=== PATIENT | male | born 1950 | race Caucasian/White ===

== ENCOUNTER 2019-01-14 20:47 | Observation (INO) | payer MEDICARE, OTHER ==
[2019-01-14] MEDS ORDERED: TRANDATE 20 MG/5 ML SYRINGE IV ONE ×2 (21:01→21:04)
[2019-01-14] MEDS ORDERED: Sodium Chloride 0.9% 1000 ML 1,000 ML ONE (21:05)
[2019-01-14 21:08] LABS: BASOPHIL % 0.8 % (0.0-0.4); Basophil (Absolute #) 0.06 (0-0.4); Eosinophil % 3.4 % (0.00-5.0); Eosinophil (Absolute #) 0.27 (0-0.5); Granulocyte Absolute (ANC) 4.62 (1.4-6.9); Granulocytes % 58.9 % (36.0-66.0); Hematocrit 45.3 % (42-50); Lymphocyte (Absolute #) 2.07 (1.0-4.6); Lymphocytes % 26.4 % (24.0-44.0); Mean Cell Volume 88.8 fl (78-100); Mean Corpuscular Hemoglobin 29.4 pg (26-32); Mean Corpuscular Hgb Concent. 33.1 g/dl (32-36); Monocyte (Absolute #) 0.82 (0.0-1.3); Monocytes % 10.5 % (0.0-12.0); Platelet Count 230 K/mm3 (150-450); Red Cell Distribution Width 14.8 % (11.5-14.0); White Blood Count 7.8 K/mm3 (4.0-10.5)
[2019-01-14] MEDS ORDERED: Sodium Chloride 0.9% 1000 ML 1,000 ML IV SCH ×2 (21:15→22:28)
[2019-01-14 21:19] LABS: ALBUMIN 4.4 g/dL (3.5-5.0); ALKALINE PHOSPHATASE 63 U/L (38-126); ANION GAP 14.8 MEQ/L (5-15); BLOOD UREA NITROGEN 23 mg/dL (9-20); CHLORIDE 104 mmol/L (98-107); Calcium 9.3 mg/dL (8.4-10.2); Carbon Dioxide 25 mmol/L (22-30); Creatinine 1 1.04 mg/dL (0.66-1.25); Glucose 126 mg/dL (74-106); Potassium 3.9 mmol/L (3.5-5.1); SGOT/AST 26 U/L (17-59); SGPT/ALT 31 U/L (0-50); SODIUM 141 mmol/L (137-145); Total Protein 7.4 g/dL (6.3-8.2)
--- NOTE | 2019-01-14 21:34 | ERPHSYRPT ---
- History of Present Illness Time Seen by Provider: 01/14/19 21:29 Source: patient, family Exam Limitations: no limitations Patient Subjective Stated Complaint: pt is alert and oriented. pt is ambulatory with a steady gait. pt comes in with c/o double vision and "bp problems." pt states he went to the fire house to have his bp checked and they told him it was "off" pt states that he's had double vision for most of the day today but can see normal with one eye but double with both eyes open and a very slight headache. pt denies past bp issues. pt current pt is 151/102. pt skin is pwd. pt PERRLA. pt denies chest pain, dizziness, pt is SR on the monitor. pt denies numbness, tingling, no facial droop noted, no slured speech. Triage Nursing Assessment: see above Physician History: pt comes in with c/o double vision and "bp problems." pt states he went to the fire house to have his bp checked and they told him it was "off" pt states that he's had double vision for most of the day today but can see normal with one eye but double with both eyes open and a very slight headache. pt denies past bp issues. Timing/Duration: today Character of Deficits: altered sensation, vision problems Deficits: no difficulties Baseline/Normal Cognition: alert oriented x 3 Current Cognition: alert oriented x 3 Associated Symptoms: vision changes, headache Allergies/Adverse Reactions: No Known Drug Allergies Allergy (Unverified 01/14/19 21:09) Home Medications: Amitriptyline HCl 300 mg PO BID 01/14/19 [History] Gabapentin 1,600 mg PO TID 01/14/19 [History] Immunizations Up to Date: Yes - Review of Systems Constitutional: No Fever, No Chills Eyes: No Symptoms, Double Vision Ears, Nose, & Throat: No Symptoms Respiratory: No Cough, No Dyspnea Cardiac: No Chest Pain, No Edema, No Syncope Abdominal/Gastrointestinal: No Abdominal Pain, No Nausea, No Vomiting, No Diarrhea Genitourinary Symptoms: No Dysuria Musculoskeletal: No Back Pain, No Neck Pain Skin: No Rash Neurological: Headache, No Dizziness, No Focal Weakness, No Sensory Changes Psychological: No Symptoms Endocrine: No Symptoms All Other Systems: Reviewed and Negative - Past Medical History Pertinent Past Medical History: No Neurological History: No Pertinent History ENT History: No Pertinent History Cardiac History: No Pertinent History Respiratory History: No Pertinent History Endocrine Medical History: No Pertinent History Musculoskeletal History: No Pertinent History GI Medical History: No Pertinent History History: No Pertinent History Psycho-Social History: No Pertinent History Male Reproductive Disorders: No Pertinent History - Past Surgical History Past Surgical History: Yes Neuro Surgical History: No Pertinent History Cardiac: No Pertinent History Respiratory: No Pertinent History Gastrointestinal: No Pertinent History Genitourinary: No Pertinent History Musculoskeletal: Orthopedic Surgery Male Surgical History: No Pertinent History - Social History Smoking Status: Never smoker Drug Use: none - Nursing Vital Signs Nursing Vital Signs: Initial Vital Signs Pulse Rate 98 H 01/14/19 20:53 Respiratory Rate 18 01/14/19 20:53 Blood Pressure 151/102 01/14/19 20:53 O2 Sat by Pulse Oximetry 98 01/14/19 20:53 Pain Scale Pain Intensity 1 - Scenic Coma Scale Best Eye Response (Harvinder): (4) open spontaneously Best Verbal Response (Harvinder): (5) oriented Best Motor Response (Harvinder): (6) obeys commands Scenic Total: 15 - Physical Exam General Appearance: no apparent distress, alert Eye Exam: bilateral eye: PERRL, EOMI, A-V nicking Ears, Nose, Throat Exam: normal ENT inspection, moist mucous membranes Neck Exam: normal inspection, non-tender, supple Respiratory: normal breath sounds, lungs clear, airway intact, No respiratory distress Cardiovascular: regular rate/rhythm, No edema Gastrointestinal: soft, No tenderness, No distention Back Exam: normal inspection Extremity Exam: normal inspection, No pedal edema Mental Status: 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, 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 Exam: PERRL, tongue midline Coordination/Gait: normal finger to nose, normal gait Skin Exam: normal color, warm, dry, No rash SpO2: 98 - Course EKG Interpreted by Me: Sinus Rhythm - Radiology Exams Chest X-ray Interpretation: Reviewed by me, Negative - CT Exams Head CT Interpretation: Tele-radiologist Report, No/Intracranial Hemorrhag Ordered Tests: Active Orders 24 hr Category Date Time Status EKG-ER Only STAT Care 01/14/19 21:01 Active NPO (ED) STAT Care 01/14/19 21:00 Active CHEST 1 VIEW (PORTABLE) Stat Exams 01/14/19 21:01 Taken HEAD WITHOUT CONTRAST [CT] Stat Exams 01/14/19 21:00 Taken CBC W DIFF Stat Lab 01/14/19 21:05 Completed CMP Stat Lab 01/14/19 21:05 Completed Erythrocyte Sedimentation Rate Stat Lab 01/14/19 21:00 Completed TROPONIN Q3H Lab 01/14/19 21:05 Completed TROPONIN Q3H Lab 01/15/19 00:00 Ordered TROPONIN Q3H Lab 01/15/19 03:00 Ordered TROPONIN Q3H Lab 01/15/19 06:00 Ordered TROPONIN Q3H Lab 01/15/19 09:00 Ordered Medication Summary Generic Name Dose Route Start Last Admin Trade Name Freq PRN Reason Stop Dose Admin Sodium Chloride 1,000 mls @ 100 mls/hr 01/14/19 21:15 01/14/19 21:22 Sodium Chloride 0.9% 1000 Ml IV 02/13/19 21:14 100 mls/hr .Q10H [facility] Administration Discontinued Medications Generic Name Dose Route Start Last Admin Trade Name Freq PRN Reason Stop Dose Admin Labetalol HCl 10 mg 01/14/19 21:01 01/14/19 21:22 Trandate 20 Mg/5 Ml Syringe IV 01/14/19 21:02 10 mg STAT ONE Administration Labetalol HCl Confirm 01/14/19 21:04 Trandate 20 Mg/5 Ml Syringe Administered 01/14/19 21:05 Dose 20 mg IV .WALTOP-Dreamise ONE Lab/Rad Data: Laboratory Result Diagrams 01/14/19 21:05 01/14/19 21:05 Laboratory Results 01/14/19 01/14/19 01/14/19 Range/Units 21:05 21:05 21:05 WBC 7.8 (4.0-10.5) K/mm3 RBC 5.10 (4.1-5.6) M/mm3 Hgb 15.0 (12.5-18.0) gm/dl Hct 45.3 (42-50) % MCV 88.8 (78-100) fl MCH 29.4 (26-32) pg MCHC 33.1 (32-36) g/dl RDW 14.8 H (11.5-14.0) % Plt Count 230 (150-450) K/mm3 MPV 10.0 H (6-9.5) fl Gran % 58.9 (36.0-66.0) % Eos # (Auto) 0.27 (0-0.5) Absolute Lymphs (auto) 2.07 (1.0-4.6) Absolute Monos (auto) 0.82 (0.0-1.3) Lymphocytes % 26.4 (24.0-44.0) % Monocytes % 10.5 (0.0-12.0) % Eosinophils % 3.4 (0.00-5.0) % Basophils % 0.8 (0.0-0.4) % Absolute Granulocytes 4.62 (1.4-6.9) Basophils # 0.06 (0-0.4) ESR (0-15) mm/hr Sodium 141 (137-145) mmol/L Potassium 3.9 (3.5-5.1) mmol/L Chloride 104 (98-107) mmol/L Carbon Dioxide 25 (22-30) mmol/L Anion Gap 14.8 (5-15) MEQ/L BUN 23 H (9-20) mg/dL Creatinine 1.04 (0.66-1.25) mg/dL Estimated GFR > 60.0 ML/MIN Glucose 126 H (74-106) mg/dL Calcium 9.3 (8.4-10.2) mg/dL Total Bilirubin 0.40 (0.2-1.3) mg/dL AST 26 (17-59) U/L ALT 31 (0-50) U/L Alkaline Phosphatase 63 (38-126) U/L Troponin I < 0.012 (0.000-0.034) ng/mL Serum Total Protein 7.4 (6.3-8.2) g/dL Albumin 4.4 (3.5-5.0) g/dL 01/14/19 Range/Units 21:00 WBC (4.0-10.5) K/mm3 RBC (4.1-5.6) M/mm3 Hgb (12.5-18.0) gm/dl Hct (42-50) % MCV (78-100) fl MCH (26-32) pg MCHC (32-36) g/dl RDW (11.5-14.0) % Plt Count (150-450) K/mm3 MPV (6-9.5) fl Gran % (36.0-66.0) % Eos # (Auto) (0-0.5) Absolute Lymphs (auto) (1.0-4.6) Absolute Monos (auto) (0.0-1.3) Lymphocytes % (24.0-44.0) % Monocytes % (0.0-12.0) % Eosinophils % (0.00-5.0) % Basophils % (0.0-0.4) % Absolute Granulocytes (1.4-6.9) Basophils # (0-0.4) ESR 3 (0-15) mm/hr Sodium (137-145) mmol/L Potassium (3.5-5.1) mmol/L Chloride (98-107) mmol/L Carbon Dioxide (22-30) mmol/L Anion Gap (5-15) MEQ/L BUN (9-20) mg/dL Creatinine (0.66-1.25) mg/dL Estimated GFR ML/MIN Glucose (74-106) mg/dL Calcium (8.4-10.2) mg/dL Total Bilirubin (0.2-1.3) mg/dL AST (17-59) U/L ALT (0-50) U/L Alkaline Phosphatase (38-126) U/L Troponin I (0.000-0.034) ng/mL Serum Total Protein (6.3-8.2) g/dL Albumin (3.5-5.0) g/dL - Progress Progress: improved Progress Note: 01/14/19 22:04 blood pressure improved, double vision improved but not completely gone Discussed with : Yuki Counseled pt/family regarding: lab results, diagnosis, need for follow-up, rad results - Departure Time of Disposition: 22:07 Departure Disposition: Observation Clinical Impression: Diplopia, Elevated blood pressure reading, Acute posterior circulation transient ischemic attack Condition: Fair Critical Care Time: Yes Critical Care Time(excluding separately billable procedures): 30-74 minutes Referrals: ALEXANDER JAVED MD [Primary Care Provider] -
[2019-01-15] MEDS: Neurontin 400 MG PO SCH ×2 (00:47→09:58)
--- NOTE | 2019-01-15 07:28 | PCM.HP ---
History of Present Illness - Chief Complaint Chief Complaint: c/o double vision and left sided temporal headache for 1 day History of Present Illness: is a 68 year old male came to Er with C/O left sided temporal area headache and double vision. He denies any other problem. His blood pressure is also running high recently - Review of Systems Constitutional: No Fever, No Chills Eyes: Double Vision Ears, Nose, & Throat: No Symptoms Respiratory: No Cough, No Short Of Breath Cardiac: No Chest Pain, No Edema, No Syncope Abdominal/Gastrointestinal: No Abdominal Pain, No Nausea, No Vomiting, No Diarrhea Genitourinary Symptoms: No Dysuria Musculoskeletal: No Back Pain, No Neck Pain Skin: No Rash Neurological: Headache, No Dizziness, No Focal Weakness, No Sensory Changes Psychological: No Symptoms Endocrine: No Symptoms Hematologic/Lymphatic: No Symptoms Immunological/Allergic: No Symptoms Medications & Allergies Home Medications: Home Medication List Amitriptyline HCl 150 mg PO BID 01/14/19 [History Confirmed 01/15/19] Gabapentin 1,600 mg PO TID 01/14/19 [History Confirmed 01/14/19] Allergies/Adverse Reactions: Allergies Allergy/AdvReac Type Severity Reaction Status Date / Time No Known Drug Allergies Allergy Unverified 01/14/19 21:09 - Past Medical History Past Medical History: Yes Neurological History: Peripheral Neuropathy ENT History: No Pertinent History Cardiac History: No Pertinent History Respiratory History: No Pertinent History Endocrine Medical History: No Pertinent History Musculoskelatal History: No Pertinent History GI Medical History: No Pertinent History History: No Pertinent History Pyscho-Social History: No Pertinent History Male Reproductive Disorders: No Pertinent History - Past Surgical History Past Surgical History: Yes Neuro Surgical History: No Pertinent History Cardiac History: No Pertinent History Respiratory Surgery: No Pertinent History GI Surgical History: No Pertinent History Genitourinary Surgical Hx: No Pertinent History Musculskeletal Surgical Hx: Orthopedic Surgery Male Surgical History: No Pertinent History Other Surgical History: back surgery - Social History Smoking Status: Never smoker Exposure to second hand smoke: No Alcohol: None Drug Use: none - Physical Exam Vital Signs: Vital Signs - 24 hr Temp Pulse Resp BP Pulse Ox 01/15/19 03:47 97.9 F 78 18 116/72 91 L 01/14/19 23:24 97.9 F 74 18 157/87 95 03/23/19 22:30 120/82 01/14/19 22:15 130/89 01/14/19 22:07 98 01/14/19 22:00 133/82 01/14/19 21:48 133/88 01/14/19 21:30 133/87 01/14/19 21:27 138/90 01/14/19 21:25 154/99 01/14/19 21:23 165/104 01/14/19 21:05 163/102 01/14/19 20:53 98 H 18 151/102 98 General Appearance: no apparent distress, alert Neurologic Exam: alert, oriented x 3, cooperative, normal mood/affect, nml cerebellar function, nml station & gait, sensation nml, No motor deficits Eye Exam: PERRL/EOMI, eyes nml inspection, other (double vision when both eyes open, clears off when shut one eye off) Ears, Nose, Throat Exam: normal ENT inspection, TMs normal, pharynx normal, moist mucous membranes Neck Exam: normal inspection, non-tender, supple, full range of motion Respiratory Exam: normal breath sounds, lungs clear, No respiratory distress Cardiovascular Exam: regular rate/rhythm, normal heart sounds, normal peripheral pulses Gastrointestinal/Abdomen Exam: soft, normal bowel sounds, No tenderness, No mass Back Exam: normal inspection, normal range of motion, No CVA tenderness, No vertebral tenderness Extremity Exam: normal inspection, normal range of motion, pelvis stable Skin Exam: normal color, warm, dry, No rash Lymphatic Exam: No adenopathy Results - Labs Lab/Micro Results: Accuchecks Accucheck Value: 119 Lab Results-Last 24 Hours 01/14/19 01/14/19 01/14/19 Range/Units 21:00 21:05 21:05 WBC 7.8 (4.0-10.5) K/mm3 RBC 5.10 (4.1-5.6) M/mm3 Hgb 15.0 (12.5-18.0) gm/dl Hct 45.3 (42-50) % MCV 88.8 (78-100) fl MCH 29.4 (26-32) pg MCHC 33.1 (32-36) g/dl RDW 14.8 H (11.5-14.0) % Plt Count 230 (150-450) K/mm3 MPV 10.0 H (6-9.5) fl Gran % 58.9 (36.0-66.0) % Eos # (Auto) 0.27 (0-0.5) Absolute Lymphs (auto) 2.07 (1.0-4.6) Absolute Monos (auto) 0.82 (0.0-1.3) Lymphocytes % 26.4 (24.0-44.0) % Monocytes % 10.5 (0.0-12.0) % Eosinophils % 3.4 (0.00-5.0) % Basophils % 0.8 (0.0-0.4) % Absolute Granulocytes 4.62 (1.4-6.9) Basophils # 0.06 (0-0.4) ESR 3 (0-15) mm/hr Sodium (137-145) mmol/L Potassium (3.5-5.1) mmol/L Chloride (98-107) mmol/L Carbon Dioxide (22-30) mmol/L Anion Gap (5-15) MEQ/L BUN (9-20) mg/dL Creatinine (0.66-1.25) mg/dL Estimated GFR ML/MIN Glucose (74-106) mg/dL Calcium (8.4-10.2) mg/dL Total Bilirubin (0.2-1.3) mg/dL AST (17-59) U/L ALT (0-50) U/L Alkaline Phosphatase (38-126) U/L Troponin I < 0.012 (0.000-0.034) ng/mL Serum Total Protein (6.3-8.2) g/dL Albumin (3.5-5.0) g/dL 01/14/19 Range/Units 21:05 WBC (4.0-10.5) K/mm3 RBC (4.1-5.6) M/mm3 Hgb (12.5-18.0) gm/dl Hct (42-50) % MCV (78-100) fl MCH (26-32) pg MCHC (32-36) g/dl RDW (11.5-14.0) % Plt Count (150-450) K/mm3 MPV (6-9.5) fl Gran % (36.0-66.0) % Eos # (Auto) (0-0.5) Absolute Lymphs (auto) (1.0-4.6) Absolute Monos (auto) (0.0-1.3) Lymphocytes % (24.0-44.0) % Monocytes % (0.0-12.0) % Eosinophils % (0.00-5.0) % Basophils % (0.0-0.4) % Absolute Granulocytes (1.4-6.9) Basophils # (0-0.4) ESR (0-15) mm/hr Sodium 141 (137-145) mmol/L Potassium 3.9 (3.5-5.1) mmol/L Chloride 104 (98-107) mmol/L Carbon Dioxide 25 (22-30) mmol/L Anion Gap 14.8 (5-15) MEQ/L BUN 23 H (9-20) mg/dL Creatinine 1.04 (0.66-1.25) mg/dL Estimated GFR > 60.0 ML/MIN Glucose 126 H (74-106) mg/dL Calcium 9.3 (8.4-10.2) mg/dL Total Bilirubin 0.40 (0.2-1.3) mg/dL AST 26 (17-59) U/L ALT 31 (0-50) U/L Alkaline Phosphatase 63 (38-126) U/L Troponin I (0.000-0.034) ng/mL Serum Total Protein 7.4 (6.3-8.2) g/dL Albumin 4.4 (3.5-5.0) g/dL Accuchecks Accucheck Value: 119 - Radiology Impressions Radiology Exams & Impressions: Radiology Procedures Category Date Time Status CHEST 1 VIEW (PORTABLE) Stat Exams 01/14/19 21:01 Taken HEAD WITHOUT CONTRAST [CT] Stat Exams 01/14/19 21:[address] head normal Assessment/Plan (1) Acute posterior circulation transient ischemic attack Current Visit: Yes Status: Acute Assessment & Plan: Last Vital Signs Temp 97.9 F 01/15/19 03:47 Pulse 78 01/15/19 03:47 Resp 18 01/15/19 03:47 BP 116/72 01/15/19 03:47 Pulse Ox 91 L 01/15/19 03:47 Allergies No Known Drug Allergies Allergy (Unverified 01/14/19 21:09) Active Medications Amitriptyline HCl (Amitriptyline Hcl 50 Mg Tablet) 150 mg PO BID [facility] Stop: 02/14/19 00:14 Last Admin: 01/15/19 00:47 Dose: 150 mg Gabapentin (Neurontin 400 Mg) 1,600 mg PO TID [facility] Stop: 02/14/19 00:14 Last Admin: 01/15/19 00:47 Dose: 1,600 mg Sodium Chloride (Sodium Chloride 0.9% 1000 Ml) 1,000 mls @ 100 mls/hr IV .Q10H [facility] Stop: 02/13/19 22:27 Last Admin: 01/15/19 07:16 Dose: 100 mls/hr Lisinopril (Zestril 10 Mg) 10 mg PO DAILY [facility] Stop: 02/14/19 09:59 Metoprolol Tartrate (Lopressor 25mg Tab) 25 mg PO DAILY [facility] Stop: 02/14/19 09:59 Intake & Output 01/14/19 01/15/19 11:59 11:59 Intake Total 908 Output Total 450 Balance 458 Weight 101.4 kg Orders 01/14/19 21:00 HEAD WITHOUT CONTRAST [CT] Stat 01/14/19 21:01 CHEST 1 VIEW (PORTABLE) Stat 01/14/19 22:28 Up Ad Deidra ROUTINE Code Status Order ROUTINE IV Care Q6H Neuro Checks Q4H Place in Observation ROUTINE Consult Neurology ROUTINE NaCl 0.9% 1000 ml [Sodium Chloride 0.9% 1000 ML] 1,000 ml IV 100 mls/hr 01/14/19 Breakfast Cardiac Diet 01/15/19 00:15 AMITRIPTYLINE HCL 50 mg Tab [AMITRIPTYLINE HCL 50 mg Tablet] 150 mg PO BID Gabapentin 400 mg [Neurontin 400 MG] 1,600 mg PO TID 01/15/19 10:00 Lisinopril 10 mg [Zestril 10 MG] 10 mg PO DAILY Metoprolol Tartrate 25 mg [Lopressor 25MG Tab] 25 mg PO DAILY Lab Tests 01/14/19 01/14/19 01/14/19 21:00 21:05 21:05 WBC 7.8 RBC 5.10 Hgb 15.0 Hct 45.3 MCV 88.8 MCH 29.4 MCHC 33.1 RDW 14.8 H Plt Count 230 MPV 10.0 H Gran % 58.9 Eos # (Auto) 0.27 Absolute Lymphs (auto) 2.07 Absolute Monos (auto) 0.82 Lymphocytes % 26.4 Monocytes % 10.5 Eosinophils % 3.4 Basophils % 0.8 Absolute Granulocytes 4.62 Basophils # 0.06 ESR 3 Sodium Potassium Chloride Carbon Dioxide Anion Gap BUN Creatinine Estimated GFR Glucose Calcium Total Bilirubin AST ALT Alkaline Phosphatase Troponin I < 0.012 Serum Total Protein Albumin 01/14/19 21:05 WBC RBC Hgb Hct MCV MCH MCHC RDW Plt Count MPV Gran % Eos # (Auto) Absolute Lymphs (auto) Absolute Monos (auto) Lymphocytes % Monocytes % Eosinophils % Basophils % Absolute Granulocytes Basophils # ESR Sodium 141 Potassium 3.9 Chloride 104 Carbon Dioxide 25 Anion Gap 14.8 BUN 23 H Creatinine 1.04 Estimated GFR > 60.0 Glucose 126 H Calcium 9.3 Total Bilirubin 0.40 AST 26 ALT 31 Alkaline Phosphatase 63 Troponin I Serum Total Protein 7.4 Albumin 4.4 Code(s): G45.8 - OTH TRANSIENT CEREBRAL ISCHEMIC ATTACKS AND RELATED SYND (2) Diplopia Current Visit: Yes Status: Acute Assessment & Plan: improving Code(s): H53.2 - DIPLOPIA (3) Elevated blood pressure reading Current Visit: Yes Status: Acute Assessment & Plan: keep close monitoring Code(s): R03.0 - ELEVATED BLOOD-PRESSURE READING, W/O DIAGNOSIS OF HTN
--- NOTE | 2019-01-15 08:27 | XRAY ---
Indication: Blurred/double vision. Elevated blood pressure. Multiple contiguous axial images obtained through the head without contrast. Comparison: April 25, 2010 Normal appearing brain parenchyma, ventricles, and bony calvarium for patient's age. Visualized paranasal sinuses and mastoid air cells are clear. Impression: Again normal CT head without contrast exam. Comment: Preliminary interpretation was made by [facility]. No discrepancy. CTDI 68.81
--- NOTE | 2019-01-15 08:30 | XRAY ---
Indication: Elevated blood pressure. Comparison: None Portable chest is negative for focal infiltrate, consolidation, or large effusion. A few incidental tiny calcified granulomas. Heart is borderline enlarged. Moderate sized hiatal hernia. Bony thorax intact with mild osteopenia and degenerative changes. Impression: Nonacute chest with chronic features.
[2019-01-15] MEDS ORDERED: Zestril 10 MG PO SCH (10:00)
[2019-01-15] MEDS ORDERED: Lopressor 25MG Tab PO SCH (10:00)
[2019-01-15 12:15] VITALS: BP 120/69; PULSE 69; O2SAT 99
== END 2019-01-15 13:00 | disposition home or self-care (01) ==
LOC: ED 20:47 → MED SURG 22:26
PROVIDERS: ADMIT General Practice; ATTEND General Practice
DX: G45.8 Other transient cerebral ischemic attacks and related syndromes (principal); R03.0 Elevated blood-pressure reading, without diagnosis of hypertension; R51 Headache; H53.2 Diplopia; Z79.899 Other long term (current) drug therapy
CPT/HCPCS: 36415; 70450; 71045; 80053; 82962; 84484; 85025; 85652; 93005; 96360; 96374; 99285; G0378; A9270-GY

== ENCOUNTER 2019-01-16 13:20 | Emergency (ER) | payer MEDICARE, OTHER ==
[2019-01-16] MEDS ORDERED: Sodium Chloride 0.9% 1000 ML 1,000 ML ONE ×2 (13:42→15:14)
[2019-01-16] MEDS ORDERED: Sodium Chloride 0.9% 1000 ML 1,000 ML IV STA ×2 (14:03→15:20)
--- NOTE | 2019-01-16 14:28 | XRAY ---
Indication: Dizziness. Hypertension. Multiple contiguous axial images obtained through the head without contrast. Comparison: 2 days ago. Continued normal appearing brain parenchyma, ventricles, and bony calvarium. Visualized paranasal sinuses and mastoid air cells are clear. Impression: Again normal CT head without contrast exam. CT DI 69.66
--- NOTE | 2019-01-16 14:30 | XRAY ---
Indication: Dyspnea. Comparison: 2 days ago. Portable chest demonstrates new minimal bibasilar infiltrates/atelectasis. Remaining chest unchanged again with borderline cardiomegaly and moderate-sized hiatal hernia.
[2019-01-16 14:40] LABS: BASOPHIL % 0.7 % (0.0-0.4); Basophil (Absolute #) 0.06 (0-0.4); Eosinophil % 2.3 % (0.00-5.0); Granulocyte Absolute (ANC) 5.63 (1.4-6.9); Granulocytes % 65.6 % (36.0-66.0); Hematocrit 44.3 % (42-50); Hemoglobin 14.4 gm/dl (12.5-18.0); Lymphocyte (Absolute #) 1.81 (1.0-4.6); Lymphocytes % 21.1 % (24.0-44.0); Mean Cell Volume 91.7 fl (78-100); Mean Corpuscular Hemoglobin 29.8 pg (26-32); Mean Corpuscular Hgb Concent. 32.5 g/dl (32-36); Mean Platelet Volume 9.8 fl (6-9.5); Monocyte (Absolute #) 0.88 (0.0-1.3); Monocytes % 10.3 % (0.0-12.0); Platelet Count 231 K/mm3 (150-450); Red Blood Count 4.83 M/mm3 (4.1-5.6); Red Cell Distribution Width 15.4 % (11.5-14.0); White Blood Count 8.6 K/mm3 (4.0-10.5)
[2019-01-16 14:43] LABS: INR 1.06 (0.8-3.0); PROTIME 12.3 SECONDS (8.83-12.87)
[2019-01-16 14:58] LABS: ALBUMIN 3.8 g/dL (3.5-5.0); ANION GAP 13.4 MEQ/L (5-15); BILIRUBIN,TOTAL 0.5 mg/dL (0.2-1.3); Calcium 8.9 mg/dL (8.4-10.2); Creatinine 1 1.82 mg/dL (0.66-1.25); NT PRO BNP 43.8 pg/mL (0-900); Potassium 5.6 mmol/L (3.5-5.1); Total Protein 6.5 g/dL (6.3-8.2)
[2019-01-16 16:06] LABS: ANION GAP 13.7 MEQ/L (5-15); Calcium 8.9 mg/dL (8.4-10.2); Creatinine 1 1.72 mg/dL (0.66-1.25); Potassium 5.3 mmol/L (3.5-5.1)
--- NOTE | 2019-01-16 16:28 | ERPHSYRPT ---
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 pt was treated here recently for hypertension. reports he was released yesterday after lunch with two new medications for his blood pressure. pt states he took both medications this morning. pt reports he did have his eyes dilated today at his eye appt. 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 Physician History: PATIENT RECENTLY HOSPITALIZED FOR TIA AND HYPERTENSION. DISCHARGED FOR THE HOSPITAL YESTERDAY, COMPLAINS OF WEAKNESS UPON STANDING. DENIES DIZZINESS. PLACED ON NEW BLOOD PRESSURE MEDICATIONS LISINOPRIL 10MG DAILY AND METOPROLOL 25MG DAILY. DENIES CHEST PAIN, DYSPNEA OR DIAPHORESIS. COMPLAINS OF DOUBLE VISION SINCE ONSET OF TIA SYMPTOMS 2 DAYS AGO. Timing/Duration: today Severity: moderate Modifying Factors: Improves With: movement Associated Symptoms: denies symptoms Allergies/Adverse Reactions: No Known Drug Allergies Allergy (Verified 01/16/19 13:40) Home Medications: Amitriptyline HCl 150 mg PO BID 01/14/19 [History] Gabapentin 1,600 mg PO TID 01/14/19 [History] Hx Tetanus, Diphtheria Vaccination/Date Given: No Hx Influenza Vaccination/Date Given: No Hx Pneumococcal Vaccination/Date Given: No Immunizations Up to Date: Yes - Review of Systems Constitutional: No Fever, No Chills Eyes: Photophobia Ears, Nose, & Throat: No Symptoms Respiratory: No Symptoms, No Cough, No Dyspnea Cardiac: No Symptoms, No Chest Pain, No Edema, No Syncope Abdominal/Gastrointestinal: No Symptoms, No Abdominal Pain, No Nausea, No Vomiting, No Diarrhea Genitourinary Symptoms: No Symptoms, No Dysuria Musculoskeletal: No Symptoms, No Back Pain, No Neck Pain Skin: No Rash Neurological: No Dizziness, No Focal Weakness, No Sensory Changes Psychological: No Symptoms Endocrine: No Symptoms All Other Systems: Reviewed and Negative - Past Medical History Pertinent Past Medical History: Yes Neurological History: Peripheral Neuropathy ENT History: No Pertinent History Cardiac History: No Pertinent History, Hypertension Respiratory History: No Pertinent History Endocrine Medical History: No Pertinent History Musculoskeletal History: No Pertinent History GI Medical History: No Pertinent History History: No Pertinent History Psycho-Social History: No Pertinent History Male Reproductive Disorders: No Pertinent History - Past Surgical History Past Surgical History: Yes Neuro Surgical History: No Pertinent History Cardiac: No Pertinent History Respiratory: No Pertinent History Gastrointestinal: No Pertinent History Genitourinary: No Pertinent History Musculoskeletal: Orthopedic Surgery Male Surgical History: No Pertinent History Other Surgical History: back surgery - Social History Smoking Status: Never smoker Exposure to second hand smoke: No Drug Use: none Patient Lives Alone: No - Nursing Vital Signs Nursing Vital Signs: Initial Vital Signs Temperature 97.4 F 01/16/19 13:28 Pulse Rate 72 01/16/19 13:28 Respiratory Rate 20 01/16/19 13:28 Blood Pressure 84/56 01/16/19 13:28 O2 Sat by Pulse Oximetry 97 01/16/19 13:28 Pain Scale Pain Intensity 0 - Physical Exam General Appearance: no apparent distress, alert Eye Exam: PERRL/EOMI, eyes nml inspection Ears, Nose, Throat Exam: normal ENT inspection, TMs normal, pharynx normal, moist mucous membranes Neck Exam: normal inspection, non-tender, supple, full range of motion Respiratory Exam: normal breath sounds, lungs clear, No respiratory distress Cardiovascular Exam: regular rate/rhythm, normal heart sounds, normal peripheral pulses Gastrointestinal/Abdomen Exam: soft, normal bowel sounds, No tenderness, No mass Back Exam: normal inspection, normal range of motion, No CVA tenderness, No vertebral tenderness Extremity Exam: normal inspection, normal range of motion, pelvis stable Neurologic Exam: alert, oriented x 3, cooperative, normal mood/affect, nml cerebellar function, nml station & gait, sensation nml, No motor deficits Skin Exam: normal color, warm, dry, No rash Lymphatic Exam: No adenopathy SpO2: 99 - Course EKG Interpreted by Me: RATE, Sinus Rhythm, NORMAL AXIS (RATE 67) - Radiology Exams Chest X-ray Interpretation: Discussed w/ radiologist (NEW MINIMAL BIBASILAR INFILTRATES /ATELECTASIS) - CT Exams Head CT Interpretation: Discussed w/radiologist, No/Intracranial Hemorrhag Ordered Tests: Active Orders 24 hr Category Date Time Status Housing Inspectors STAT Care 01/16/19 14:04 Active EKG-ER Only STAT Care 01/16/19 14:03 Active Oxygen-ED Only Nasal Cannula 2 lpm Care 01/16/19 14:03 Active CHEST 1 VIEW (PORTABLE) Stat Exams 01/16/19 14:04 Completed HEAD WITHOUT CONTRAST [CT] Stat Exams 01/16/19 14:05 Completed BMP Stat Lab 01/16/19 15:50 Completed CBC W DIFF Stat Lab 01/16/19 14:30 Completed CMP Stat Lab 01/16/19 14:30 Completed NT PRO BNP Stat Lab 01/16/19 14:30 Completed PROTIME WITH INR Stat Lab 01/16/19 14:30 Completed TROPONIN Q3H Lab 01/16/19 14:30 Completed TROPONIN Q3H Lab 01/16/19 17:15 Ordered TROPONIN Q3H Lab 01/16/19 20:15 Ordered TROPONIN Q3H Lab 01/16/19 23:15 Ordered TROPONIN Q3H Lab 01/17/19 02:15 Ordered Urinalysis with Microscopy Stat Lab 01/16/19 Uncollected Medication Summary Discontinued Medications Generic Name Dose Route Start Last Admin Trade Name Freq PRN Reason Stop Dose Admin Sodium Chloride Confirm 01/16/19 13:42 Sodium Chloride 0.9% 1000 Ml Administered 01/16/19 13:43 Dose 1,000 mls @ ud .ROUTE .STK-MED ONE Sodium Chloride 1,000 mls @ 999 mls/hr 01/16/19 14:03 01/16/19 14:13 Sodium Chloride 0.9% 1000 Ml IV 01/16/19 15:03 999 mls/hr .Q1H1M STA Administration Sodium Chloride Confirm 01/16/19 15:14 Sodium Chloride 0.9% 1000 Ml Administered 01/16/19 15:15 Dose 1,000 mls @ ud .ROUTE .STK-MED ONE Sodium Chloride 1,000 mls @ 999 mls/hr 01/16/19 15:20 01/16/19 16:00 Sodium Chloride 0.9% 1000 Ml IV 01/16/19 16:20 999 mls/hr .Q1H1M STA Administration Lab/Rad Data: Laboratory Result Diagrams 01/16/19 14:30 01/16/19 15:50 Laboratory Results 01/16/19 01/16/19 01/16/19 Range/Units 15:50 14:30 14:30 WBC (4.0-10.5) K/mm3 RBC (4.1-5.6) M/mm3 Hgb (12.5-18.0) gm/dl Hct (42-50) % MCV (78-100) fl MCH (26-32) pg MCHC (32-36) g/dl RDW (11.5-14.0) % Plt Count (150-450) K/mm3 MPV (6-9.5) fl Gran % (36.0-66.0) % Eos # (Auto) (0-0.5) Absolute Lymphs (auto) (1.0-4.6) Absolute Monos (auto) (0.0-1.3) Lymphocytes % (24.0-44.0) % Monocytes % (0.0-12.0) % Eosinophils % (0.00-5.0) % Basophils % (0.0-0.4) % Absolute Granulocytes (1.4-6.9) Basophils # (0-0.4) PT 12.3 (8.83-12.87) SECONDS INR 1.06 (0.8-3.0) Sodium 140 (137-145) mmol/L Potassium 5.3 H (3.5-5.1) mmol/L Chloride 106 (98-107) mmol/L Carbon Dioxide 26 (22-30) mmol/L Anion Gap 13.7 (5-15) MEQ/L BUN 24 H (9-20) mg/dL Creatinine 1.72 H (0.66-1.25) mg/dL Estimated GFR 42.1 ML/MIN Glucose 89 (74-106) mg/dL Calcium 8.9 (8.4-10.2) mg/dL Total Bilirubin (0.2-1.3) mg/dL AST (17-59) U/L ALT (0-50) U/L Alkaline Phosphatase (38-126) U/L Troponin I < 0.012 (0.000-0.034) ng/mL NT-Pro-B Natriuret Pep (0-900) pg/mL Serum Total Protein (6.3-8.2) g/dL Albumin (3.5-5.0) g/dL 01/16/19 01/16/19 Range/Units 14:30 14:30 WBC 8.6 (4.0-10.5) K/mm3 RBC 4.83 (4.1-5.6) M/mm3 Hgb 14.4 (12.5-18.0) gm/dl Hct 44.3 (42-50) % MCV 91.7 (78-100) fl MCH 29.8 (26-32) pg MCHC 32.5 (32-36) g/dl RDW 15.4 H (11.5-14.0) % Plt Count 231 (150-450) K/mm3 MPV 9.8 H (6-9.5) fl Gran % 65.6 (36.0-66.0) % Eos # (Auto) 0.20 (0-0.5) Absolute Lymphs (auto) 1.81 (1.0-4.6) Absolute Monos (auto) 0.88 (0.0-1.3) Lymphocytes % 21.1 L (24.0-44.0) % Monocytes % 10.3 (0.0-12.0) % Eosinophils % 2.3 (0.00-5.0) % Basophils % 0.7 (0.0-0.4) % Absolute Granulocytes 5.63 (1.4-6.9) Basophils # 0.06 (0-0.4) PT (8.83-12.87) SECONDS INR (0.8-3.0) Sodium 140 (137-145) mmol/L Potassium 5.6 H D (3.5-5.1) mmol/L Chloride 107 (98-107) mmol/L Carbon Dioxide 26 (22-30) mmol/L Anion Gap 13.4 (5-15) MEQ/L BUN 25 H (9-20) mg/dL Creatinine 1.82 H (0.66-1.25) mg/dL Estimated GFR 39.5 ML/MIN Glucose 88 (74-106) mg/dL Calcium 8.9 (8.4-10.2) mg/dL Total Bilirubin 0.50 (0.2-1.3) mg/dL AST 22 (17-59) U/L ALT 27 (0-50) U/L Alkaline Phosphatase 46 (38-126) U/L Troponin I (0.000-0.034) ng/mL NT-Pro-B Natriuret Pep 43.8 (0-900) pg/mL Serum Total Protein 6.5 (6.3-8.2) g/dL Albumin 3.8 (3.5-5.0) g/dL - Progress Progress Note: 01/16/19 16:28 INITIAL BP 84/56 IMPROVE TO BP 109/76 AFTER 1400ML NORMAL SALINE OVER [address]RS[address]CUSSED FINDING WITH DR JAVED AT 1620 FOR OFFICE FOLLOW TOMORROW. Counseled pt/family regarding: lab results, diagnosis, need for follow-up, rad results - Departure Time of Disposition: 16:40 Departure Disposition: Home (1630) Clinical Impression: HYPOTENSION Condition: Stable Critical Care Time: No Referrals: ALEXANDER JAVED MD [Primary Care Provider] - Additional Instructions: DISCONTINUE TAKING MEDICATION LISINOPRIL 10 MG DAILY. DRINK PLENTY OF FLUIDS. FOLLOWUP WITH DR JAVED TOMORROW FOR EVALUATION. RETURN TO EMERGENCY FOR DIZZINESS OR WEAKNESS,
[2019-01-16 16:51] VITALS: BP 123/81; PULSE 62; O2SAT 94
== END 2019-01-16 16:52 | disposition home or self-care (01) ==
LOC: ED 13:20
DX: I95.9 Hypotension, unspecified (principal); R53.1 Weakness; I10 Essential (primary) hypertension; H53.2 Diplopia; Z86.73 Personal history of transient ischemic attack (TIA), and cerebral infarction without residual deficits; Z79.899 Other long term (current) drug therapy
CPT/HCPCS: 36415; 70450; 71045; 80048; 80053; 83880; 84484; 85025; 85610; 93005; 93041; 96360; 96361; 99284

== ENCOUNTER 2019-04-20 19:15 | Emergency (ER) | payer MEDICARE, OTHER ==
--- NOTE | 2019-04-20 19:22 | ERPHSYRPT ---
- History of Present Illness Time Seen by Provider: 04/20/19 19:22 Source: patient Exam Limitations: no limitations Physician History: 68 y/o white male presents with concern for high bp at home. 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 spouse gave him another dose of his lisinopril at home. pt has a mild headache. no visual changes. pt has been working outside in heat last couple of days. he has been thirsty. pt denies cp, soa and abd pain. Timing/Duration: today Severity: mild Associated Symptoms: headaches (mild), No nausea, No vomiting, No abdominal pain Allergies/Adverse Reactions: No Known Drug Allergies Allergy (Verified 01/16/19 13:40) Home Medications: Amitriptyline HCl 150 mg PO BID 01/14/19 [History] Gabapentin 1,600 mg PO TID 01/14/19 [History] Lisinopril 10 mg [Zestril 10 MG] 10 mg PO Q12H PRN PRN 04/20/19 [History] Hx Tetanus, Diphtheria Vaccination/Date Given: No Hx Influenza Vaccination/Date Given: No Hx Pneumococcal Vaccination/Date Given: No - Review of Systems Constitutional: No Symptoms Eyes: No Symptoms Ears, Nose, & Throat: No Symptoms Respiratory: No Symptoms Cardiac: No Symptoms Abdominal/Gastrointestinal: No Symptoms Genitourinary Symptoms: No Symptoms Musculoskeletal: No Symptoms Skin: No Symptoms Neurological: Headache (mild), No Dizziness Psychological: No Symptoms Endocrine: No Symptoms Hematologic/Lymphatic: No Symptoms Immunological/Allergic: No Symptoms All Other Systems: Reviewed and Negative - Past Medical History Pertinent Past Medical History: Yes Neurological History: Peripheral Neuropathy ENT History: No Pertinent History Cardiac History: No Pertinent History, Hypertension Respiratory History: No Pertinent History Endocrine Medical History: No Pertinent History Musculoskeletal History: No Pertinent History GI Medical History: No Pertinent History History: No Pertinent History Psycho-Social History: No Pertinent History Male Reproductive Disorders: No Pertinent History - Past Surgical History Past Surgical History: Yes Neuro Surgical History: No Pertinent History Cardiac: No Pertinent History Respiratory: No Pertinent History Gastrointestinal: No Pertinent History Genitourinary: No Pertinent History Musculoskeletal: Orthopedic Surgery Male Surgical History: No Pertinent History Other Surgical History: back surgery - Social History Smoking Status: Never smoker Exposure to second hand smoke: No Drug Use: none Patient Lives Alone: No - Nursing Vital Signs Nursing Vital Signs: Initial Vital Signs Temperature 97.9 F 04/20/19 19:23 Pulse Rate 94 H 04/20/19 19:23 Respiratory Rate 18 04/20/19 19:23 Blood Pressure 145/95 04/20/19 19:23 O2 Sat by Pulse Oximetry 95 04/20/19 19:23 Pain Scale Pain Intensity 0 - Physical Exam General Appearance: no apparent distress, alert, anxiety Eye Exam: PERRL/EOMI, eyes nml inspection Ears, Nose, Throat Exam: normal ENT inspection, moist mucous membranes Neck Exam: normal inspection, non-tender, supple, full range of motion Respiratory Exam: normal breath sounds, lungs clear, airway intact, No chest tenderness, No respiratory distress Cardiovascular Exam: regular rate/rhythm, normal heart sounds, normal peripheral pulses Gastrointestinal/Abdomen Exam: soft, normal bowel sounds, No tenderness Rectal Exam: not done Back Exam: normal inspection, normal range of motion, No CVA tenderness, No vertebral tenderness Extremity Exam: normal inspection, normal range of motion, pelvis stable Neurologic Exam: alert, oriented x 3, cooperative, 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, normal mood/affect, nml cerebellar function, nml station & gait, sensation nml Skin Exam: normal color, warm, dry Lymphatic Exam: No adenopathy SpO2 Interpretation: normal O2 Delivery: Room Air Ordered Tests: Active Orders 24 hr Category Date Time Status IV Insertion STAT Care 04/20/19 19:34 Active Pulse Oximetry (ED) STAT Care 04/20/19 19:34 Active HEAD WITHOUT CONTRAST [CT] Stat Exams 04/20/19 19:49 Taken BMP Stat Lab 04/20/19 20:05 Completed CBC W DIFF Stat Lab 04/20/19 20:05 Completed UA W/RFX UR CULTURE Stat Lab 04/20/19 21:23 Completed Medication Summary Discontinued Medications Generic Name Dose Route Start Last Admin Trade Name Freq PRN Reason Stop Dose Admin Sodium Chloride 1,000 mls @ 999 mls/hr 04/20/19 19:34 04/20/19 20:26 Sodium Chloride 0.9% 1000 Ml IV 04/20/19 20:34 999 mls/hr .Q1H1M STA Administration Sodium Chloride Confirm 04/20/19 20:25 Sodium Chloride 0.9% 1000 Ml Administered 04/20/19 20:26 Dose 1,000 mls @ [facility] Lab/Rad Data: Laboratory Result Diagrams 04/20/19 20:05 04/20/19 20:05 Laboratory Results 04/20/19 04/20/19 04/20/19 Range/Units 21:23 20:05 20:05 WBC 8.0 (4.0-10.5) K/mm3 RBC 4.94 (4.1-5.6) M/mm3 Hgb 14.6 (12.5-18.0) gm/dl Hct 44.1 (42-50) % MCV 89.3 (78-100) fl MCH 29.6 (26-32) pg MCHC 33.1 (32-36) g/dl RDW 15.5 H (11.5-14.0) % Plt Count 223 (150-450) K/mm3 MPV 10.2 H (6-9.5) fl Gran % 60.7 (36.0-66.0) % Eos # (Auto) 0.15 (0-0.5) Absolute Lymphs (auto) 2.07 (1.0-4.6) Absolute Monos (auto) 0.88 (0.0-1.3) Lymphocytes % 25.9 (24.0-44.0) % Monocytes % 11.0 (0.0-12.0) % Eosinophils % 1.9 (0.00-5.0) % Basophils % 0.5 (0.0-0.4) % Absolute Granulocytes 4.85 (1.4-6.9) Basophils # 0.04 (0-0.4) Sodium 140 (137-145) mmol/L Potassium 4.0 (3.5-5.1) mmol/L Chloride 104 (98-107) mmol/L Carbon Dioxide 26 (22-30) mmol/L Anion Gap 12.9 (5-15) MEQ/L BUN 20 (9-20) mg/dL Creatinine 1.25 (0.66-1.25) mg/dL Estimated GFR > 60.0 ML/MIN Glucose 95 (74-106) mg/dL Calcium 9.5 (8.4-10.2) mg/dL Urine Color YELLOW (YELLOW) Urine Appearance CLEAR (CLEAR) Urine pH 5.0 (5-6) Ur Specific [place] 1.026 (1.005-1.025) Urine Protein NEGATIVE (Negative) Urine Ketones NEGATIVE (NEGATIVE) Urine Blood NEGATIVE (0-5) Ezra/ul Urine Nitrite NEGATIVE (NEGATIVE) Urine Bilirubin NEGATIVE (NEGATIVE) Urine Urobilinogen NEGATIVE (0-1) mg/dL Ur Leukocyte Esterase NEGATIVE (NEGATIVE) Urine WBC (Auto) 0-2 (0-5) /HPF Urine RBC (Auto) NONE (0-2) /HPF U Epithel Cells (Auto) NONE (FEW) /HPF Urine Bacteria (Auto) NONE (NEGATIVE) /HPF Urine Mucus (Auto) SLIGHT (NEGATIVE) /HPF Urine Culture Reflexed NO (NO) Urine Glucose NEGATIVE (NEGATIVE) mg/dL - Progress Progress: improved Progress Note: 04/20/19 21:46 ct head-no acute process Counseled pt/family regarding: lab results, diagnosis, need for follow-up, rad results - Departure Departure Disposition: Home Clinical Impression: Headache, Blood pressure check Condition: Stable Critical Care Time: No Referrals: ALEXANDER JAVED MD [Primary Care Provider] - Additional Instructions: take your medications as prescribed follow up with your primary doctor for further management
[2019-04-20] MEDS ORDERED: Sodium Chloride 0.9% 1000 ML 1,000 ML IV STA (19:34)
[2019-04-20 20:24] LABS: BASOPHIL % 0.5 % (0.0-0.4); Basophil (Absolute #) 0.04 (0-0.4); Eosinophil % 1.9 % (0.00-5.0); Eosinophil (Absolute #) 0.15 (0-0.5); Granulocyte Absolute (ANC) 4.85 (1.4-6.9); Granulocytes % 60.7 % (36.0-66.0); Hematocrit 44.1 % (42-50); Hemoglobin 14.6 gm/dl (12.5-18.0); Lymphocyte (Absolute #) 2.07 (1.0-4.6); Lymphocytes % 25.9 % (24.0-44.0); Mean Cell Volume 89.3 fl (78-100); Mean Corpuscular Hemoglobin 29.6 pg (26-32); Mean Corpuscular Hgb Concent. 33.1 g/dl (32-36); Mean Platelet Volume 10.2 fl (6-9.5); Monocyte (Absolute #) 0.88 (0.0-1.3); Platelet Count 223 K/mm3 (150-450); Red Blood Count 4.94 M/mm3 (4.1-5.6); Red Cell Distribution Width 15.5 % (11.5-14.0)
[2019-04-20] MEDS ORDERED: Sodium Chloride 0.9% 1000 ML 1,000 ML ONE (20:25)
[2019-04-20 20:31] LABS: ANION GAP 12.9 MEQ/L (5-15); BLOOD UREA NITROGEN 20 mg/dL (9-20); CHLORIDE 104 mmol/L (98-107); Calcium 9.5 mg/dL (8.4-10.2); Carbon Dioxide 26 mmol/L (22-30); Creatinine 1 1.25 mg/dL (0.66-1.25); Glucose 95 mg/dL (74-106); SODIUM 140 mmol/L (137-145)
[2019-04-20 21:30] LABS: Appearance CLEAR (CLEAR); Bilirubin NEGATIVE (NEGATIVE); Blood NEGATIVE Ery/ul (0-5); Glucose NEGATIVE (NEGATIVE); Ketones NEGATIVE (NEGATIVE); Leukocyte Esterase NEGATIVE (NEGATIVE); Mucus SLIGHT /HPF (NEGATIVE); Nitrite NEGATIVE (NEGATIVE); Protein,Urine Dip NEGATIVE (Negative); Specific Gravity 1.026 (1.005-1.025); Urobilinogen NEGATIVE mg/dL (0-1); WBC 0-2 /HPF (0-5)
[2019-04-20 21:52] VITALS: BP 128/85; PULSE 79; O2SAT 97
--- NOTE | 2019-04-21 09:00 | XRAY ---
Indication: Headache. Hypertension. Multiple contiguous axial images obtained through the head without contrast. Comparison: January 16, 2019. Again normal appearing brain parenchyma, ventricles, and bony calvarium. Visualized paranasal sinuses and mastoid air cells are clear. Impression: Stable normal CT head without contrast exam. CT DI 67.80
== END 2019-04-20 22:05 | disposition home or self-care (01) ==
LOC: ED 19:15
DX: R51 Headache (principal); I10 Essential (primary) hypertension; G62.9 Polyneuropathy, unspecified; Z86.73 Personal history of transient ischemic attack (TIA), and cerebral infarction without residual deficits; Z79.899 Other long term (current) drug therapy
CPT/HCPCS: 36000; 36415; 70450; 80048; 81001; 85025; 96360; 99284

== ENCOUNTER 2020-04-28 13:25 | Emergency (ER) | payer MEDICARE, OTHER ==
[2020-04-28] MEDS ORDERED: Sodium Chloride 0.9% 1000 ML 1,000 ML IV STA ×2 (13:45→14:47)
[2020-04-28] MEDS ORDERED: Sodium Chloride 0.9% 1000 ML 1,000 ML ONE ×2 (13:49→14:48)
[2020-04-28 13:53] LABS: Absolute Neutrophil Ct (ANC) 4.78 (1.4-6.9); BASOPHIL % 1.2 % (0.0-0.4); Eosinophil % 4.6 % (0.00-5.0); Eosinophil (Absolute #) 0.38 (0-0.5); Hematocrit 46.9 % (42-50); Hemoglobin 15.4 gm/dl (12.5-18.0); Lymphocyte (Absolute #) 2.11 (1.0-4.6); Lymphocytes % 25.3 % (24.0-44.0); Mean Cell Volume 92.1 fl (78-100); Mean Corpuscular Hemoglobin 30.3 pg (26-32); Mean Corpuscular Hgb Concent. 32.8 g/dl (32-36); Mean Platelet Volume 10.1 fl (7.5-11.0); Monocyte (Absolute #) 0.98 (0.0-1.3); Monocytes % 11.7 % (0.0-12.0); Neutrophil % 57.2 % (36.0-66.0); Platelet Count 250 K/mm3 (150-450); Red Blood Count 5.09 M/mm3 (4.1-5.6); Red Cell Distribution Width 15.7 % (11.5-14.0); White Blood Count 8.4 K/mm3 (4.0-10.5)
[2020-04-28 14:04] LABS: ALBUMIN 4.2 g/dL (3.5-5.0); ALKALINE PHOSPHATASE 57 U/L (38-126); BLOOD UREA NITROGEN 19 mg/dL (9-20); CHLORIDE 111 mmol/L (98-107); Calcium 9.5 mg/dL (8.4-10.2); Carbon Dioxide 24 mmol/L (22-30); Creatinine 1 1.07 mg/dL (0.66-1.25); Glucose 110 mg/dL (74-106); Potassium 4.2 mmol/L (3.5-5.1); SGOT/AST 25 U/L (17-59); SGPT/ALT 24 U/L (0-50); SODIUM 143 mmol/L (137-145); Total Protein 6.9 g/dL (6.3-8.2)
[2020-04-28 14:32] VITALS: BP 120/81; PULSE 78; O2SAT 96
--- NOTE | 2020-04-28 14:48 | ERPHSYRPT ---
- History of Present Illness Time Seen by Provider: 04/28/20 14:40 Source: patient, family Exam Limitations: no limitations Patient Subjective Stated Complaint: Pt brought in by due to pt slurring words and having difficulty walking, pt complains of dizziness, trouble swallowing, and a headache that comes and goes Triage Nursing Assessment: Pt brought in the ER via a wheel chair, pt A&O x3 but had to think about it for a minute, pt taken directly to CT and then brought back to the room, 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, upon arrival pt was slurring speech and was unable to smile or move tongue appropriately from side to side but is able to do it at the time of typing this assessment, vitals wnl, pulses normal, pt c/o that he gets extremely dizzy and feels as though he will pass out, c/o of a headache that is off and on but denies pain at this time, skin n/w/d, eyes sluggish, weak in strength in hernán arms, left leg drift Physician History: Pt brought in by due to pt slurring words and having difficulty walking, pt complains of dizziness, trouble swallowing, and a headache that comes and goes for 1-2 days. 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, upon arrival pt was slurring speech and was unable to smile or move tongue appropriately from side to side but is able to do it at the time pt c/o that he gets extremely dizzy and feels as though he will pass out, c/o of a headache that is off and on but denies pain at this time, Timing/Duration: yesterday Severity: mild Character of Deficits: new weakness, altered sensation, impaired speech, impaired swallowing Deficits: no difficulties Baseline/Normal Cognition: alert oriented x 3 Current Cognition: alert oriented x 3 Associated Symptoms: fatigue, weakness, slurred speech, headache, No fever, No chills, No vision changes, No chest pain Allergies/Adverse Reactions: No Known Drug Allergies Allergy (Verified 04/28/20 14:01) Home Medications: Amitriptyline HCl 150 mg PO BID 01/14/19 [History] Gabapentin 1,600 mg PO TID 01/14/19 [History] Lisinopril 10 mg [Zestril 10 MG] 10 mg PO Q12H PRN PRN 04/20/19 [History] Duloxetine HCl 60 mg PO DAILY 04/28/20 [History] Nabumetone 2 tab PO DAILY 04/28/20 [History] Hx Tetanus, Diphtheria Vaccination/Date Given: No Hx Influenza Vaccination/Date Given: No Hx Pneumococcal Vaccination/Date Given: No Travel Risk - International Travel Have you traveled outside of the country in past 3 weeks: No - Coronavirus Screening Close contact with a COVID-19 positive Pt in past 14-21 Days: No - Review of Systems Constitutional: Fatigue, Weakness, No Fever, No Chills Eyes: No Symptoms Ears, Nose, & Throat: No Symptoms Respiratory: No Cough, No Dyspnea Cardiac: No Chest Pain, No Edema, No Syncope Abdominal/Gastrointestinal: No Abdominal Pain, No Nausea, No Vomiting, No Diarrhea Genitourinary Symptoms: No Dysuria Musculoskeletal: No Back Pain, No Neck Pain Skin: No Rash Neurological: Dizziness, Headache, Speech Changes, No Focal Weakness, No Sensory Changes Psychological: No Symptoms Endocrine: No Symptoms All Other Systems: Reviewed and Negative - Past Medical History Pertinent Past Medical History: Yes Neurological History: Peripheral Neuropathy ENT History: No Pertinent History Cardiac History: No Pertinent History, Hypertension Respiratory History: No Pertinent History Endocrine Medical History: No Pertinent History Musculoskeletal History: No Pertinent History GI Medical History: No Pertinent History History: No Pertinent History Psycho-Social History: No Pertinent History Male Reproductive Disorders: No Pertinent History - Past Surgical History Past Surgical History: Yes Neuro Surgical History: No Pertinent History Cardiac: No Pertinent History Respiratory: No Pertinent History Gastrointestinal: Cholecystectomy, Hernia Repair Genitourinary: No Pertinent History Musculoskeletal: Orthopedic Surgery Male Surgical History: No Pertinent History Other Surgical History: back surgery - Social History Smoking Status: Never smoker Exposure to second hand smoke: No Drug Use: none Patient Lives Alone: No - Nursing Vital Signs Nursing Vital Signs: Initial Vital Signs Pulse Rate 88 04/28/20 13:39 Respiratory Rate 24 04/28/20 13:39 Blood Pressure 132/95 04/28/20 13:39 O2 Sat by Pulse Oximetry 96 04/28/20 13:39 Pain Scale Pain Intensity 0 - [place] Coma Scale Best Eye Response ([place]): (4) open spontaneously Best Verbal Response ([place]): (5) oriented Best Motor Response ([place]): (6) obeys commands Harvinder Total: 15 - Physical Exam General Appearance: no apparent distress, alert Eye Exam: bilateral eye: PERRL, EOMI Ears, Nose, Throat Exam: normal ENT inspection, moist mucous membranes Neck Exam: normal inspection, non-tender, supple Respiratory: normal breath sounds, lungs clear, airway intact, No respiratory distress Cardiovascular: regular rate/rhythm, No edema Gastrointestinal: soft, No tenderness, No distention Back Exam: normal inspection Extremity Exam: normal inspection, No pedal edema Mental Status: alert, oriented x 3 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 helper Exam: tongue midline Coordination/Gait: normal finger to nose, normal gait Motor/Sensory: no motor deficit Skin Exam: normal color, warm, dry, No rash SpO2 Interpretation: normal SpO2: 96 O2 Delivery: Room Air - Course Nursing assessment & vital signs reviewed: Yes Ordered Tests: Active Orders 24 hr Category Date Time Status Housing Counselor STAT Care 04/28/20 13:46 Active EKG-ER Only STAT Care 04/28/20 13:45 Active IV Insertion STAT Care 04/28/20 13:45 Active IV Insertion-2nd Peripheral STAT Care 04/28/20 13:53 Active NPO (ED) STAT Care 04/28/20 13:46 Active Oxygen-ED Only Nasal Cannula 2 lpm Care 04/28/20 13:45 Active Pulse Oximetry (ED) STAT Care 04/28/20 13:57 Active HEAD WITHOUT CONTRAST [CT] Stat Exams 04/28/20 13:27 Taken CBC W DIFF Stat Lab 04/28/20 13:40 Completed CMP Stat Lab 04/28/20 13:40 Completed Lactic Acid Stat Lab 04/28/20 13:45 Completed TROPONIN Q3H Lab 04/28/20 14:30 Received TROPONIN Q3H Lab 04/28/20 17:30 Ordered TROPONIN Q3H Lab 04/28/20 20:30 Ordered TROPONIN Q3H Lab 04/28/20 23:30 Ordered UA W/RFX UR CULTURE Stat Lab 04/28/20 13:46 Uncollected Medication Summary Generic Name Dose Route Start Last Admin Trade Name Freq PRN Reason Stop Dose Admin Sodium Chloride 1,000 mls @ 999 mls/hr 04/28/20 14:47 07/05/20 14:49 Sodium Chloride 0.9% 1000 Ml IV 04/28/20 15:47 999 mls/hr .Q1H1M STA Administration Discontinued Medications Generic Name Dose Route Start Last Admin Trade Name Suzanne PRN Reason Stop Dose Admin Sodium Chloride 1,000 mls @ 999 mls/hr 04/28/20 13:45 04/28/20 14:29 Sodium Chloride 0.9% 1000 Ml IV 04/28/20 14:45 Infused .Q1H1M STA Infusion Sodium Chloride Confirm 04/28/20 13:49 Sodium Chloride 0.9% 1000 Ml Administered 04/28/20 13:50 Dose 1,000 mls @ ud .ROUTE .STK-MED ONE Sodium Chloride Confirm 04/28/20 14:48 Sodium Chloride 0.9% 1000 Ml Administered 04/28/20 14:49 Dose 1,000 mls @ ud .ROUTE .STK-MED ONE Lab/Rad Data: Laboratory Result Diagrams 04/28/20 13:40 04/28/20 13:40 Laboratory Results 04/28/20 04/28/20 04/28/20 Range/Units 13:45 13:40 13:40 WBC 8.4 (4.0-10.5) K/mm3 RBC 5.09 (4.1-5.6) M/mm3 Hgb 15.4 (12.5-18.0) gm/dl Hct 46.9 (42-50) % MCV 92.1 (78-100) fl MCH 30.3 (26-32) pg MCHC 32.8 (32-36) g/dl RDW 15.7 H (11.5-14.0) % Plt Count 250 (150-450) K/mm3 MPV 10.1 (7.5-11.0) fl Gran % 57.2 (36.0-66.0) % Eos # (Auto) 0.38 (0-0.5) Absolute Lymphs (auto) 2.11 (1.0-4.6) Absolute Monos (auto) 0.98 (0.0-1.3) Lymphocytes % 25.3 (24.0-44.0) % Monocytes % 11.7 (0.0-12.0) % Eosinophils % 4.6 (0.00-5.0) % Basophils % 1.2 (0.0-0.4) % Absolute Granulocytes 4.78 (1.4-6.9) Basophils # 0.10 (0-0.4) Sodium 143 (137-145) mmol/L Potassium 4.2 (3.5-5.1) mmol/L Chloride 111 H (98-107) mmol/L Carbon Dioxide 24 (22-30) mmol/L Anion Gap 12.0 (5-15) MEQ/L BUN 19 (9-20) mg/dL Creatinine 1.07 (0.66-1.25) mg/dL Estimated GFR > 60.0 ML/MIN Glucose 110 H (74-106) mg/dL Lactic Acid 2.4 H (0.4-2.0) Calcium 9.5 (8.4-10.2) mg/dL Total Bilirubin 0.60 (0.2-1.3) mg/dL AST 25 (17-59) U/L ALT 24 (0-50) U/L Alkaline Phosphatase 57 (38-126) U/L Serum Total Protein 6.9 (6.3-8.2) g/dL Albumin 4.2 (3.5-5.0) g/dL - Progress Progress: improved Counseled pt/family regarding: lab results, diagnosis, need for follow-up, rad results - Departure Departure Disposition: Home Clinical Impression: Dehydration symptoms, Episodic ataxia with slurred speech, Slurred speech Condition: Stable Critical Care Time: Yes Critical Care Time(excluding separately billable procedures): Critical 30-74 mins Referrals: ALEXANDER JAVED MD [Primary Care Provider] - Follow Up with PCP/3 days Additional Instructions: Discharge/Care Plan CHUNANDRES HOOD was seen on 04/28/20 in the Emergency Room. The patient was counseled regarding Diagnosis,Lab results, Imaging studies, need for follow up and when to return to the Emergency Room. Prescriptions given: Discharge Note I have spoken with the patient and/or caregivers. I have explained the patient's condition, diagnosis and treatment plan based on the information available to me at this time. I have answered the patient's and/or caregiver's questions and addressed any concerns. The patient and/or caregivers have as good understanding of the patient's diagnosis, condition and treatment plan as can be expected at this point. The vital signs have been stable. The patient's condition is stable and appropriate for discharge from the emergency department. The patient will pursue further outpatient evaluation with the primary care physician or other designated or consulting physician as outlined in the discharge instructions. The patient and/or caregivers are agreeable to this plan of care and follow-up instructions have been explained in detail. The patient and/or caregivers have received these instruction. The patient/and or caregivers are aware that any significant change in condition or worsening of symptoms should prompt an immediate return to this or the closest emergency department or call 911. ANDRES MCCOLLUM was seen on 04/28/20 n the Emergency Room. At that time you were treated for an emergent condition, during your visit Laboratory, Radiology and/or other procedures may have been ordered. It is very important that you follow-up with your Primary Care Physician ALEXANDER JAVED within the next 24-48 hours to review your Emergency Room visit and the final results of testing that was ordered. Some test results such as Urine Cultures, Blood Cultures, and other cultures if ordered will not be finalized for 24-48 hours. If you do not have a Primary Care Provider please call the medical records department at [phone] ext [phone] to obtain a copy of your results or you may sign into our patient portal to obtain these results by visiting us @ [email or web address] and completing the following steps: 1. Click on the Patient Portal link 2. Click the Patient Self Enrollment Link to complete the enrollment form and entering your 3. Once the enrollment form is completed you will receive an email with a temporary ID and password at the email address you provided. 4. Next choose a user name and password. Your user name must be at least 4 characters long and your password must be at least 4 characters long. 5. Choose a security question from the list and provide your answer to the question. If you already have signed into the Health Portal you may access your Health Care Information 17/05 by the following steps: 1. Login to our website @ [email or web address] 2. Enter your original user name and password. FAQS The [facility] Health Portal is an online tool that contains your Lab Results, Radiology Reports, Visit History, Discharge Instructions and Health Summary Lab and Radiology Results will not be available for 72 hours on the portal. The Portal is a secure site, passwords are encryted and URLs are re-written so they cannot be copied and pasted. You and authorized family members are the only ones who can access your Portal. Also there is a timeout feature that protects your information if you leave the Portal page open. If you have technical difficulty please use the Contact Us link on the page this will allow you to submit any questions you have regarding the Portal or you may contact the Medical Record Department at [phone] ext [phone].
--- NOTE | 2020-04-28 21:38 | XRAY ---
Indication: Dizziness, slurred speech, weakness, and trouble swallowing. Multiple contiguous axial images obtained through the head without contrast. Comparison: November 20, 2018. Again normal appearing brain parenchyma, ventricles, and bony calvarium. Visualized paranasal sinuses and mastoid air cells are clear. Impression: Continued normal CT head without contrast exam. Comment: Preliminary interpretation was made by [facility]. No critical discrepancy.
== END 2020-04-28 15:21 | disposition home or self-care (01) ==
LOC: ED 13:25
DX: E86.0 Dehydration (principal); R27.0 Ataxia, unspecified; R47.81 Slurred speech; R42 Dizziness and giddiness; R53.83 Other fatigue; Z79.899 Other long term (current) drug therapy; I10 Essential (primary) hypertension
CPT/HCPCS: 36000; 36415; 70450; 80053; 83605; 84484; 85025; 93005; 93041; 94760; 96360; 99284; 99291

== ENCOUNTER 2020-07-31 11:39 | Day surgery (SDC) | payer MEDICARE, OTHER ==
[~2020-07-31 11:39] MED LIST: DEXTROSE IV ONE; DIPRIVAN 200 MG/20 ML IV ONE; KEFZOL IV ONE; Ketamine HCl 50 MG/ML ONE; WATER IV ONE
[2020-07-31] MEDS ORDERED: Sodium Chloride 0.9(Preservative Free) 10 ML IJ ONE (11:40)
[2020-07-31] MEDS ORDERED: Xylocaine 1% Vial 30 ML PF IJ ONE (11:40)
[2020-07-31] MEDS ORDERED: Lactated Ringers 1,000 ML IV ONE (12:02)
--- NOTE | 2020-07-31 16:14 | XRAY ---
Indication: Spinal cord stimulator placement. Intraoperative fluoroscopy provided for 2 minute 21 seconds. 4 digital spot images submitted for interpretation demonstrates single posterior epidural stimulator lead entering thoracolumbar junction with tip terminating mid-lower thoracic level. Correlate with intraoperative findings/report.
--- NOTE | 2020-07-31 16:34 | XRAY ---
2 minutes and 21 seconds fluoroscopy time in surgery for placement of spinal cord stimulator.
== END 2020-07-31 15:06 | disposition home or self-care (01) ==
LOC: SDC-PAIN 11:39
PROVIDERS: ATTEND Psychiatry & Neurology Pain Medicine
DX: G90.523 Complex regional pain syndrome I of lower limb, bilateral (principal); G60.9 Hereditary and idiopathic neuropathy, unspecified; I10 Essential (primary) hypertension; J44.9 Chronic obstructive pulmonary disease, unspecified; Z86.73 Personal history of transient ischemic attack (TIA), and cerebral infarction without residual deficits; Z79.899 Other long term (current) drug therapy; K21.9 Gastro-esophageal reflux disease without esophagitis
CPT/HCPCS: 72100; 77002; 99100; J0690; J2001; J2704

== ENCOUNTER 2020-12-18 11:35 | Emergency (ER) | payer MEDICARE, OTHER ==
--- NOTE | 2020-12-18 11:37 | ERPHSYRPT ---
- History of Present Illness Time Seen by Provider: 12/18/20 11:37 Historian: patient Exam Limitations: no limitations Physician History: This is a 70-year-old white male whose had a cholecystectomy in the past and presents with 3-day history of constipation. Patient had a colonoscopy approximately 1 year ago and there were no significant findings per his report. Patient has a stimulator in his back for pain control. He does not use narcotics. Patient has never had episodes of constipation in the past. He denies abdominal pain. He denies nausea vomiting. Yesterday the patient use MiraLAX [id number] in approximately 1 hour prior to arrival today patient drank a bottle of magnesium citrate. Patient denies any new medications. Patient has a history of peripheral neuropathy and hypertension. Timing/Duration: day(s) (3) Activities at Onset: none Quality: pressure (Rectal/perianal area) Abdominal Pain Onset Location: other (Denies abdominal pain) Pain Radiation: no radiation Severity of Pain-Max: moderate Severity of Pain-Current: moderate (Rectal/perianal described more as a pressure rather than pain) Associated Symptoms: denies symptoms Previous symptoms: no prior history Allergies/Adverse Reactions: No Known Drug Allergies Allergy (Verified 12/18/20 11:50) Home Medications: Amitriptyline HCl 150 mg PO BID 01/14/19 [History] Gabapentin 1,600 mg PO TID 01/14/19 [History] Hx Tetanus, Diphtheria Vaccination/Date Given: No Hx Influenza Vaccination/Date Given: No Hx Pneumococcal Vaccination/Date Given: No Travel Risk - International Travel Have you traveled outside of the country in past 3 weeks: No - Coronavirus Screening Are you exhibiting any of the following symptoms?: No Close contact with a COVID-19 positive Pt in past 14-21 Days: No - Review of Systems Constitutional: No Symptoms Eyes: No Symptoms Ears, Nose, & Throat: No Symptoms Respiratory: No Symptoms Cardiac: No Symptoms Abdominal/Gastrointestinal: Constipation, No Abdominal Pain, No Nausea, No Vomiting Genitourinary Symptoms: No Symptoms Musculoskeletal: No Symptoms Skin: No Symptoms Neurological: No Symptoms Psychological: No Symptoms Endocrine: No Symptoms Hematologic/Lymphatic: No Symptoms Immunological/Allergic: No Symptoms All Other Systems: Reviewed and Negative - Past Medical History Pertinent Past Medical History: Yes Neurological History: Peripheral Neuropathy ENT History: No Pertinent History Cardiac History: No Pertinent History, Hypertension Respiratory History: No Pertinent History Endocrine Medical History: No Pertinent History Musculoskeletal History: No Pertinent History GI Medical History: No Pertinent History History: No Pertinent History Psycho-Social History: No Pertinent History Male Reproductive Disorders: No Pertinent History - Past Surgical History Past Surgical History: Yes Neuro Surgical History: No Pertinent History Cardiac: No Pertinent History Respiratory: No Pertinent History Gastrointestinal: Cholecystectomy, Hernia Repair Genitourinary: No Pertinent History Musculoskeletal: Orthopedic Surgery Male Surgical History: No Pertinent History Other Surgical History: back surgery - Social History Smoking Status: Never smoker Exposure to second hand smoke: No Drug Use: none Patient Lives Alone: No - Nursing Vital Signs Nursing Vital Signs: Initial Vital Signs Temperature 97.2 F 12/18/20 11:43 Pulse Rate 120 H 12/18/20 11:43 Respiratory Rate 18 12/18/20 11:43 Blood Pressure 134/98 12/18/20 11:43 O2 Sat by Pulse Oximetry 95 12/18/20 11:43 Pain Scale Pain Intensity 10 - Physical Exam General Appearance: no apparent distress, alert, anxiety Eye Exam: PERRL/EOMI, eyes nml inspection Ears, Nose, Throat Exam: normal ENT inspection, moist mucous membranes Neck Exam: normal inspection, non-tender, supple, full range of motion Respiratory Exam: normal breath sounds, lungs clear, airway intact, No chest tenderness, No respiratory distress Cardiovascular Exam: regular rate/rhythm, normal heart sounds, normal peripheral pulses Gastrointestinal/Abdomen Exam: soft, normal bowel sounds, No tenderness Rectal Exam: deferred Back Exam: normal inspection, normal range of motion, No CVA tenderness, No vertebral tenderness Extremity Exam: normal inspection, normal range of motion, pelvis stable Neurologic Exam: alert, oriented x 3, cooperative, regional operations manager II-XII nml as tested, n ormal mood/affect, nml cerebellar function, nml station & gait, sensation nml Skin Exam: normal color, warm, dry Lymphatic Exam: No adenopathy SpO2 Interpretation: normal O2 Delivery: Room Air - Course Nursing assessment & vital signs reviewed: Yes Ordered Tests: Active Orders 24 hr Category Date Time Status Enema STAT Care 12/18/20 12:34 Active KUB Stat Exams 12/18/20 11:54 Completed - Progress Progress Note: 12/18/20 12:24 Medical decision making: This patient has had constipation for 3 days. He is taken oral medications to help relieve his constipation. The magnesium citrate probably has not had enough time to work. The plan for him is to check a KUB to make sure that there is actually stool in the rectum. If there is stool in the anorectal region, we will use a fleets enema to help relieve his constipation. If this is not helpful then we will use soapsuds enema. If this is not helpful then we will proceed to digital rectal exam with disimpaction. 12/18/20 12:36 KUB shows no acute intra-abdominal findings such as a bowel obstruction or fecal impaction. There is fecal debris but mostly on the ascending colon side. We will use a fleets enema to see if we can get any activity or passage of stool or flatus. 12/18/20 13:37 Patient had excellent response to fleets enema. His symptoms are relieved. He has no more anorectal pressure or pain. Counseled pt/family regarding: diagnosis, need for follow-up, rad results - Departure Departure Disposition: Home Clinical Impression: Constipation Condition: Stable Critical Care Time: No Referrals: ALEXANDER JAVED MD [Primary Care Provider] - Additional Instructions: Drink plenty of fluids. Follow-up with your primary care physician and/or perianesthesia nurse to formulate a plan for bowel hygiene to help prevent episodes of constipation in the future.
--- NOTE | 2020-12-18 12:25 | XRAY ---
Indication: Constipation. Pain pump. Comparison: None KUB nonacute and nonobstructed with minimal scattered colonic fecal debris greatest in the ascending colon and previous cholecystectomy. Solid organs unremarkable. A few pelvic phleboliths. Osseous structures intact with mild multilevel degenerative spondylosis and left epidural stimulator device with leads. Impression: Nonacute KUB with chronic features.
[2020-12-18 13:45] VITALS: BP 131/84; PULSE 104; O2SAT 99
== END 2020-12-18 13:47 | disposition home or self-care (01) ==
LOC: ED 11:35
DX: K59.00 Constipation, unspecified (principal); I10 Essential (primary) hypertension; G62.9 Polyneuropathy, unspecified
CPT/HCPCS: 74018; 99283

== ENCOUNTER 2020-12-19 02:36 | Emergency (ER) | payer MEDICARE, OTHER ==
--- NOTE | 2020-12-19 03:00 | ERPHSYRPT ---
- History of Present Illness Time Seen by Provider: 12/19/20 02:52 Historian: patient Exam Limitations: no limitations Physician History: This is a 70-year-old white male who was here approximately 12 hours ago in this emergency department and seen by me. The patient initially came in at that time with approximately 2-day history of no bowel movement and had a lot of anorectal pressure and discomfort. He had had a normal colonoscopy approximately a year ago per his report. He has never had a history of constipation prior to that episode. We did a KUB which showed some fecal debris throughout the colon but mostly in the right side of his abdomen. We proceeded with a fleets enema. He had an excellent response to that and his symptoms completely resolved. He was told at the time of his discharge from the emergency department yesterday that he should be active and drinking plenty of fluids and if this occurred again to give himself a fleets enema. His symptoms recurred and he did not give himself a fleets enema. Timing/Duration: day(s) (2) Activities at Onset: none Quality: pressure Abdominal Pain Onset Location: other (Anorectal pressure. Patient denies abdominal pain or discomfort) Severity of Pain-Max: moderate Severity of Pain-Current: moderate (In the anorectal region) Associated Symptoms: denies symptoms Previous symptoms: same symptoms as today, recently seen, recently treated Allergies/Adverse Reactions: No Known Drug Allergies Allergy (Verified 12/19/20 02:42) Home Medications: Amitriptyline HCl 150 mg PO BID 01/14/19 [History] Gabapentin 1,600 mg PO TID 01/14/19 [History] Hx Tetanus, Diphtheria Vaccination/Date Given: No Hx Influenza Vaccination/Date Given: No Hx Pneumococcal Vaccination/Date Given: No Travel Risk - International Travel Have you traveled outside of the country in past 3 weeks: No - Coronavirus Screening Are you exhibiting any of the following symptoms?: No Close contact with a COVID-19 positive Pt in past 14-21 Days: No - Review of Systems Constitutional: No Symptoms Eyes: No Symptoms Ears, Nose, & Throat: No Symptoms Respiratory: No Symptoms Cardiac: No Symptoms Abdominal/Gastrointestinal: Constipation, Other (Pressure in the anorectal region) Genitourinary Symptoms: No Symptoms Musculoskeletal: No Symptoms Skin: No Symptoms Neurological: No Symptoms Psychological: No Symptoms Endocrine: No Symptoms Hematologic/Lymphatic: No Symptoms Immunological/Allergic: No Symptoms All Other Systems: Reviewed and Negative - Past Medical History Pertinent Past Medical History: Yes Neurological History: Peripheral Neuropathy ENT History: No Pertinent History Cardiac History: No Pertinent History, Hypertension Respiratory History: No Pertinent History Endocrine Medical History: No Pertinent History Musculoskeletal History: No Pertinent History GI Medical History: No Pertinent History History: No Pertinent History Psycho-Social History: No Pertinent History Male Reproductive Disorders: No Pertinent History - Past Surgical History Past Surgical History: Yes Neuro Surgical History: No Pertinent History Cardiac: No Pertinent History Respiratory: No Pertinent History Gastrointestinal: Cholecystectomy, Hernia Repair Genitourinary: No Pertinent History Musculoskeletal: Orthopedic Surgery Male Surgical History: No Pertinent History Other Surgical History: back surgery - Social History Smoking Status: Never smoker Exposure to second hand smoke: No Drug Use: none Patient Lives Alone: No - Nursing Vital Signs Nursing Vital Signs: Initial Vital Signs Temperature 97.3 F 12/19/20 02:43 Pulse Rate 79 12/19/20 02:43 Respiratory Rate 18 12/19/20 02:43 Blood Pressure 161/88 12/19/20 02:43 O2 Sat by Pulse Oximetry 98 12/19/20 02:43 Pain Scale Pain Intensity 6 - Physical Exam General Appearance: no apparent distress, alert, anxiety Eye Exam: PERRL/EOMI, eyes nml inspection Ears, Nose, Throat Exam: normal ENT inspection, moist mucous membranes Neck Exam: normal inspection, non-tender, supple, full range of motion Respiratory Exam: normal breath sounds, lungs clear, airway intact, No chest tenderness, No respiratory distress Cardiovascular Exam: regular rate/rhythm, normal heart sounds, normal peripheral pulses Gastrointestinal/Abdomen Exam: soft, normal bowel sounds, No tenderness Rectal Exam: deferred, tenderness (Described more as a rectal pressure) Back Exam: normal inspection, normal range of motion, No CVA tenderness, No vertebral tenderness Extremity Exam: normal inspection, normal range of motion, pelvis stable Neurologic Exam: alert, oriented x 3, cooperative, 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 His symptoms were relieved completely after a fleets enema. Since he has returned I discussed with him the work-up which includes a CAT scan of the abdomen pelvis, urinalysis, blood work. The patient is refusing that work-up. He only wants a fleets enema. He stated that that helped relieve his symptoms completely. Patient will sign refusal of treatment. We will provide him with fleets enema rectally. 12/19/20 05:12 Patient did not have a great response with the fleets enema. The cramping pressure was still present. We again offered him a full work-up and a soapsuds enema. Patient again refused the work-up as stated above and wanted to try the soapsuds enema. He had a good response in terms of relief of his symptoms with the soapsuds enema. We again offered him a full work-up and he refuses again he has signed a refusal of treatment/work-up and will see his primary care physician today. Counseled pt/family regarding: diagnosis, need for follow-up - Departure Departure Disposition: Home Clinical Impression: Constipation, Rectal pain Condition: Stable Critical Care Time: No Referrals: ALEXANDER JAVED MD [Primary Care Provider] - Additional Instructions: Keep your appointment with your primary care physician today. Obtain magnesium citrate, MiraLAX for oral use for your recurrent symptoms and fleets enema to use rectally if your symptoms recur. Use these at home first and if symptoms persist then return to the emergency department or your primary care doctor's office
[2020-12-19 05:20] VITALS: BP 138/78; PULSE 78; O2SAT 97
== END 2020-12-19 05:20 | disposition home or self-care (01) ==
LOC: ED 02:36
DX: K59.00 Constipation, unspecified (principal); K62.89 Other specified diseases of anus and rectum
CPT/HCPCS: 99283

== ENCOUNTER 2023-11-13 11:00 | Emergency (ER) | payer MEDICARE, OTHER ==
[2023-11-13] MEDS ORDERED: Sodium Chloride 0.9% 1000 ML 1,000 ML IV STA (11:12)
[2023-11-13 11:15] VITALS: TEMP 98
[2023-11-13] MEDS ORDERED: Sodium Chloride 0.9% 1000 ML 1,000 ML ONE (11:23)
[2023-11-13 11:39] LABS: Absolute Neutrophil Ct (ANC) 3.75 x10^3/uL (1.4-6.9); BASOPHIL % 1.2 % (0.0-0.4); Basophil (Absolute #) 0.07 x10^3/uL (0-0.4); Eosinophil % 3.1 % (0.00-5.0); Eosinophil (Absolute #) 0.18 x10^3/uL (0-0.5); Hematocrit 41.2 % (42-50); Hemoglobin 12.6 g/dL (12.5-18.0); IMMATURE GRAN # 0.02 x10^3u/L (0.00-0.03); IMMATURE GRAN % 0.3 % (0.00-0.4); Lymphocyte (Absolute #) 1.13 x10^3/uL (1.0-4.6); Lymphocytes % 19.6 % (24.0-44.0); Mean Cell Volume 84.3 fL (78-100); Mean Corpuscular Hemoglobin 25.8 pg (26-32); Mean Corpuscular Hgb Concent. 30.6 g/dL (32-36); Mean Platelet Volume 10.2 fL (7.5-11.0); Monocyte (Absolute #) 0.63 x10^3/uL (0.0-1.3); Monocytes % 10.9 % (0.0-12.0); Neutrophil % 64.9 % (36.0-66.0); Platelet Count 302 x10^3/uL (150-450); Red Blood Count 4.89 x10^6/uL (4.1-5.6); Red Cell Distribution Width 15.3 % (11.5-14.0); White Blood Count 5.8 x10^3/uL (4.0-10.5)
--- NOTE | 2023-11-13 11:52 | ERPHSYRPT ---
- History of Present Illness Time Seen by Provider: 11/13/23 11:05 Patient Subjective Stated Complaint: syncopal episodes when stands up Triage Nursing Assessment: Pt broguht to the ER by his , vitals wnl, denies pain, positive for orthostatics, pulses normal, no difficulty breathing, skin n/w/d, denies dizziness while laying, only has issue when he stands Physician History: 73yo m presents for 2-3wks syncopal episodes when standing from seated position. Pt states he will stand and walk about 10 steps, then feels his knees buckle and has to catch himself before falling. Pt denies ever hitting his head, denies LOC, denies any other MSK injury. Pt has no cardiac hx, states he has not had syncopal episodes prior. Pt currently denies cp, soa, n/v/abdominal pain. Witnessed: by family Prior Episodes: multiple episodes today Timing/Duration: week(s) (3), intermittent Precipitating Factors: other (changing position) Context: standing (standing from seated) Loss of Consciousness: no loss of consciousness Allergies/Adverse Reactions: No Known Drug Allergies Allergy (Verified 11/13/23 11:17) Home Medications: Amitriptyline HCl 150 mg PO BID 01/14/19 [History] Gabapentin 1,600 mg PO BID 01/14/19 [History] Hx Tetanus, Diphtheria Vaccination/Date Given: No Hx Influenza Vaccination/Date Given: Yes Hx Pneumococcal Vaccination/Date Given: No Travel Risk - International Travel Have you traveled outside of the country in past 3 weeks: No - Coronavirus Screening Are you exhibiting any of the following symptoms?: No Close contact with a COVID-19 positive Pt in past 14-21 Days: No - Vaccine Status Have you recieved a Covid-19 vaccination: Yes Manager Online: Unknown - Vaccination Dates Dates if Unknown: unk - Past Medical History Pertinent Past Medical History: Yes Neurological History: Peripheral Neuropathy ENT History: No Pertinent History Cardiac History: No Pertinent History, Hypertension Respiratory History: No Pertinent History Endocrine Medical History: No Pertinent History Musculoskeletal History: No Pertinent History GI Medical History: No Pertinent History History: No Pertinent History Psycho-Social History: No Pertinent History Male Reproductive Disorders: No Pertinent History - Past Surgical History Past Surgical History: Yes Neuro Surgical History: No Pertinent History Cardiac: No Pertinent History Respiratory: No Pertinent History Gastrointestinal: Cholecystectomy, Hernia Repair Genitourinary: No Pertinent History Musculoskeletal: Orthopedic Surgery Male Surgical History: No Pertinent History Other Surgical History: back surgery - Social History Smoking Status: Never smoker Exposure to second hand smoke: No Drug Use: none Patient Lives Alone: No - Review of Systems Constitutional: No Symptoms Ears, Nose, & Throat: No Symptoms Respiratory: No Symptoms Cardiac: Syncope, No Chest Pain, No Edema Abdominal/Gastrointestinal: No Symptoms Genitourinary Symptoms: No Symptoms Physical Exam - Nursing Vital Signs Nursing Vital Signs: Initial Vital Signs Pulse Rate 93 H 11/13/23 11:05 Respiratory Rate 19 11/13/23 11:05 O2 Sat by Pulse Oximetry 94 L 11/13/23 11:05 Pain Scale Pain Intensity 0 - Newton Coma Scale Best Eye Response (Harvinder): (4) open spontaneously Best Verbal Response (Newton): (5) oriented Best Motor Response (Harvinder): (6) obeys commands Harvinder Total: 15 - Physical Exam General Appearance: no apparent distress, alert Eye Exam: bilateral eye: normal inspection, PERRL, EOMI Respiratory: normal breath sounds, lungs clear, airway intact Cardiovascular: regular rate/rhythm, normal heart sounds, normal peripheral pulses, capillary refill <2 sec Gastrointestinal: soft, normal bowel sounds Peripheral Pulses: dorsalis-pedis (R): 2+, dorsalis-pedis (L): 2+ Mental Status: alert, oriented x 3, cooperative case consultant Exam: normal hearing, normal speech, PERRL Coordination/Gait: normal finger to nose, normal gait Motor/Sensory: no motor deficit, no sensory deficit SpO2 Interpretation: normal SpO2: 96 O2 Delivery: Room Air - Course EKG Interpreted by Me: RATE, Sinus Rhythm, Sinus Tach, NORMAL INTERVALS, Other (occasional PVC, no ST changes, not suggestive of ischemia) Ordered Tests: Active Orders 24 hr Category Date Time Status IV Insertion STAT Care 11/13/23 11:12 Active CBC W DIFF Stat Lab 11/13/23 11:25 Completed CMP Stat Lab 11/13/23 11:25 Completed TROPONIN Q4H Lab 11/13/23 11:25 Completed TROPONIN Q4H Lab 11/13/23 15:15 Ordered TROPONIN Q4H Lab 11/13/23 19:15 Ordered Medication Summary Discontinued Medications Generic Name Dose Route Start Last Admin Trade Name Freq PRN Reason Stop Dose Admin Sodium Chloride 1,000 mls @ 999 mls/hr 11/13/23 11:12 11/13/23 14:03 Sodium Chloride 0.9% 1000 Ml IV 11/13/23 12:12 Infused .Q1H1M STA Infusion Sodium Chloride Confirm 11/13/23 11:23 Sodium Chloride 0.9% 1000 Ml Administered 11/13/23 11:24 Dose 1,000 mls @ ud .ROUTE .STK-MED ONE Lab/Rad Data: Laboratory Result Diagrams 11/13/23 11:25 11/13/23 11:25 Laboratory Results 11/13/23 11/13/23 11/13/23 Range/Units 11:25 11:25 11:25 WBC 5.8 (4.0-10.5) x10^3/uL RBC 4.89 (4.1-5.6) x10^6/uL Hgb 12.6 (12.5-18.0) g/dL Hct 41.2 L (42-50) % MCV 84.3 (78-100) fL MCH 25.8 L (26-32) pg MCHC 30.6 L (32-36) g/dL RDW 15.3 H (11.5-14.0) % Plt Count 302 (150-450) x10^3/uL MPV 10.2 (7.5-11.0) fL Gran % 64.9 (36.0-66.0) % Immature Gran % (Auto) 0.3 (0.00-0.4) % Nucleat RBC Rel Count 0.0 (0.00-0.1) % Eos # (Auto) 0.18 (0-0.5) x10^3/uL Immature Gran # (Auto) 0.02 (0.00-0.03) x10^3u/L Absolute Lymphs (auto) 1.13 (1.0-4.6) x10^3/uL Absolute Monos (auto) 0.63 (0.0-1.3) x10^3/uL Absolute Nucleated RBC 0.00 (0.00-0.01) x10^3u/L Lymphocytes % 19.6 L (24.0-44.0) % Monocytes % 10.9 (0.0-12.0) % Eosinophils % 3.1 (0.00-5.0) % Basophils % 1.2 (0.0-0.4) % Absolute Granulocytes 3.75 (1.4-6.9) x10^3/uL Basophils # 0.07 (0-0.4) x10^3/uL Sodium 138 (137-145) mmol/L Potassium 3.8 (3.5-5.1) mmol/L Chloride 105 (98-107) mmol/L Carbon Dioxide 26 (22-30) mmol/L Anion Gap 10.6 (5-15) MEQ/L BUN 15 (9-20) mg/dL Creatinine 1.19 (0.66-1.25) mg/dL Estimated GFR 64.1 ML/MIN Glucose 128 H (74-106) mg/dL Calcium 9.0 (8.4-10.2) mg/dL Total Bilirubin 0.40 (0.2-1.3) mg/dL AST 21 (17-59) U/L ALT 20 (0-50) U/L Alkaline Phosphatase 58 (38-126) U/L Troponin I < 0.012 (0.000-0.034) ng/mL Serum Total Protein 6.7 (6.3-8.2) g/dL Albumin 3.9 (3.5-5.0) g/dL - Progress Progress: improved Progress Note: 11/13/23 13:43 pt feeling well, 1L bolus given trop neg, ekg grossly normal, electrolytes grossly normal plan to have nursing staff ambulate pt, will dc if pt able to ambulate safely w/ syncope/falls 11/13/23 14:24 pt did well on ambulation trial, no syncope, no weakness, no falls plan for dc home w/ close pcp f/u Counseled pt/family regarding: lab results, diagnosis, need for follow-up Medical Desision Making - Risk of complications Minimal Risk: Minimal risk of morbidity - Departure Departure Disposition: Home Clinical Impression: Orthostatic hypotension Condition: Stable Critical Care Time: No Referrals: ALEXANDER JAVED MD [Primary Care Provider] - Follow up/PCP as directed Additional Instructions: wait 1min after changing position before standing drink plenty of fluids to maintain BP follow up w/ Dr Javed this coming week return to ED if symptoms worsen
[2023-11-13 12:14] LABS: ALBUMIN 3.9 g/dL (3.5-5.0); ANION GAP 10.6 MEQ/L (5-15); BILIRUBIN,TOTAL 0.4 mg/dL (0.2-1.3); Creatinine 1 1.19 mg/dL (0.66-1.25); EST GLOMERULAR FILTRATION RATE 64.1 ML/MIN; Potassium 3.8 mmol/L (3.5-5.1); Total Protein 6.7 g/dL (6.3-8.2)
[2023-11-13 13:56] VITALS: PULSE 86; RESP 16
[2023-11-13 14:25] VITALS: O2SAT 96
[2023-11-13 14:29] VITALS: BP 129/86
== END 2023-11-13 14:32 | disposition home or self-care (01) ==
LOC: ED 11:00
DX: I95.1 Orthostatic hypotension (principal); Z79.899 Other long term (current) drug therapy
CPT/HCPCS: 36415; 80053; 84484; 85025; 96360; 99284

== ENCOUNTER 2023-12-07 16:13 | Observation (INO) | payer MEDICARE, OTHER ==
--- NOTE | 2023-12-07 16:41 | ERPHSYRPT ---
- History of Present Illness Time Seen by Provider: 12/07/23 16:25 Source: patient Exam Limitations: no limitations Patient Subjective Stated Complaint: Pt states "I get lightheaded when I walk from room to room and I have been coughing like crazy." Triage Nursing Assessment: Pt presented alert and oriented X 3, skin pwd. Pt ambulates with a slow steady gait, able to speak in clear full setnensces. PT resting comfortably on the bed. Physician History: 73-year-old male presents to our ED for evaluation of lightheadedness syncope and cough. Patient states his lightheadedness started approximately 2 weeks ago and has gotten progressively worse. He presented to our ED for the same. Patient was worked up and discharged. Patient was observed to have low blood pressure. Patient followed up with his primary care physician. Per patient's primary care doctor started him on a medication to increase his blood pressure as it was running low. Patient on midodrine 2.5 mg twice daily. Doing so has improved patient's blood pressure. However it has not improved the symptoms. Patient symptoms are progressive. Symptoms are moderate in intensity. No specific worsening improving factors. No associated chest pain or shortness of breath. No nausea vomiting or diaphoresis. at bedside. She voices no other complaints or concerns at this time. Portions of this note were created with voice recognition technology. There may be grammatical, spelling, punctuation or sound alike errors Timing/Duration: week(s) (2 weeks) Severity: moderate Modifying Factors: Improves With: nothing Associated Symptoms: denies symptoms Allergies/Adverse Reactions: No Known Drug Allergies Allergy (Verified 11/13/23 11:17) Home Medications: Amitriptyline HCl 150 mg PO BID 01/14/19 [History] Gabapentin 1,600 mg PO BID 01/14/19 [History] Midodrine HCl 2.5 mg PO BID 12/07/23 [History] Hx Tetanus, Diphtheria Vaccination/Date Given: No Hx Influenza Vaccination/Date Given: Yes Hx Pneumococcal Vaccination/Date Given: No Immunizations Up to Date: No Travel Risk - International Travel Have you traveled outside of the country in past 3 weeks: No - Coronavirus Screening Are you exhibiting any of the following symptoms?: Yes Symptoms: Cough: New Onset, Shortness of Breath Close contact with a COVID-19 positive Pt in past 14-21 Days: No - Vaccine Status Have you recieved a Covid-19 vaccination: Yes Beader Tender: Unknown - Vaccination Dates Dates if Unknown: unk - Review of Systems Constitutional: No Symptoms, No Fever, No Chills Eyes: No Symptoms Ears, Nose, & Throat: No Symptoms Respiratory: No Symptoms, No Cough, No Dyspnea Cardiac: No Symptoms, No Chest Pain, No Edema, No Syncope Abdominal/Gastrointestinal: No Symptoms, No Abdominal Pain, No Nausea, No Vomiting, No Diarrhea Genitourinary Symptoms: No Symptoms, No Dysuria Musculoskeletal: No Symptoms, No Back Pain, No Neck Pain Skin: No Symptoms, No Rash Neurological: No Symptoms, No Dizziness, No Focal Weakness, No Sensory Changes Psychological: No Symptoms Endocrine: No Symptoms Hematologic/Lymphatic: No Symptoms Immunological/Allergic: No Symptoms All Other Systems: Reviewed and Negative - Past Medical History Pertinent Past Medical History: Yes Neurological History: Peripheral Neuropathy ENT History: No Pertinent History Cardiac History: No Pertinent History, Hypertension Respiratory History: No Pertinent History Endocrine Medical History: No Pertinent History Musculoskeletal History: No Pertinent History GI Medical History: No Pertinent History History: No Pertinent History Psycho-Social History: No Pertinent History Male Reproductive Disorders: No Pertinent History - Past Surgical History Past Surgical History: Yes Neuro Surgical History: No Pertinent History Cardiac: No Pertinent History Respiratory: No Pertinent History Gastrointestinal: Cholecystectomy, Hernia Repair Genitourinary: No Pertinent History Musculoskeletal: Orthopedic Surgery Male Surgical History: No Pertinent History Other Surgical History: back surgery - Social History Smoking Status: Never smoker Exposure to second hand smoke: No Drug Use: none Patient Lives Alone: No - Nursing Vital Signs Nursing Vital Signs: Initial Vital Signs Temperature 97.2 F 12/07/23 16:14 Pulse Rate 87 12/07/23 16:14 Respiratory Rate 20 12/07/23 16:14 Blood Pressure 128/89 12/07/23 16:14 O2 Sat by Pulse Oximetry 98 12/07/23 16:14 Pain Scale Pain Intensity 0 - Physical Exam General Appearance: no apparent distress, alert Eye Exam: PERRL/EOMI, eyes nml inspection Ears, Nose, Throat Exam: normal ENT inspection, TMs normal, pharynx normal, moist mucous membranes Neck Exam: normal inspection, non-tender, supple, full range of motion Respiratory Exam: normal breath sounds, lungs clear, airway intact, No respiratory distress Cardiovascular Exam: regular rate/rhythm, normal heart sounds, normal peripheral pulses Gastrointestinal/Abdomen Exam: soft, normal bowel sounds, No tenderness, No mass Back Exam: normal inspection, normal range of motion, No CVA tenderness, No v ertebral tenderness Extremity Exam: normal inspection, normal range of motion, pelvis stable Neurologic Exam: alert, oriented x 3, cooperative, normal mood/affect, nml cerebellar function, nml station & gait, sensation nml, No motor deficits Skin Exam: normal color, warm, dry, No rash Lymphatic Exam: No adenopathy SpO2 Interpretation: normal SpO2: 95 O2 Delivery: Room Air - Course Nursing assessment & vital signs reviewed: Yes EKG Interpreted by Me: RATE (87), Sinus Rhythm, Left [place] Deviation, NORMAL INTERVALS - CT Exams Head CT Interpretation: Tele-radiologist Report (Compared to 04/28/2020 new mild paranasal sinus disease otherwise continued normal head) Ordered Tests: Active Orders 24 hr Category Date Time Status [employer] Specialist STAT Care 12/07/23 16:56 Active EKG-ER Only STAT Care 12/07/23 16:55 Active IV Insertion STAT Care 12/07/23 16:55 Active Pulse Oximetry (ED) STAT Care 12/07/23 16:55 Active CHEST 1 VIEW (PORTABLE) Stat Exams 12/07/23 18:08 Taken HEAD WITHOUT CONTRAST [CT] Stat Exams 12/07/23 18:31 Taken CBC W DIFF Stat Lab 12/07/23 16:55 Completed CMP Stat Lab 12/07/23 05:10 Completed D-DIMER QUANTITATIVE Stat Lab 12/07/23 05:10 Completed NT PRO BNPII Stat Lab 12/07/23 05:10 Completed TROPONIN Q4H Lab 12/07/23 05:10 Completed TROPONIN Q4H Lab 12/07/23 20:20 Received TROPONIN Q4H Lab 12/08/23 01:00 Ordered UA W/RFX UR CULTURE Stat Lab 12/07/23 20:44 Ordered Medication Summary Generic Name Dose Route Start Last Admin Trade Name Freq PRN Reason Stop Dose Admin Sodium Chloride 1,000 mls @ 150 mls/hr 12/07/23 21:00 Sodium Chloride 0.9% 1000 Ml IV 01/06/24 20:59 .[id number] [facility] Lab/Rad Data: Laboratory Result Diagrams 12/07/23 16:55 02/13/24 05:10 Laboratory Results 12/07/23 12/07/23 12/07/23 Range/Units 16:55 16:32 05:10 WBC 4.8 (4.0-10.5) x10^3/uL RBC 4.87 (4.1-5.6) x10^6/uL Hgb 12.4 L (12.5-18.0) g/dL Hct 40.6 L (42-50) % MCV 83.4 (78-100) fL MCH 25.5 L (26-32) pg MCHC 30.5 L (32-36) g/dL RDW 15.8 H (11.5-14.0) % Plt Count 275 (150-450) x10^3/uL MPV 9.9 (7.5-11.0) fL Gran % 52.7 (36.0-66.0) % Immature Gran % (Auto) 0.4 (0.00-0.4) % Nucleat RBC Rel Count 0.0 (0.00-0.1) % Eos # (Auto) 0.12 (0-0.5) x10^3/uL Immature Gran # (Auto) 0.02 (0.00-0.03) x10^3u/L Absolute Lymphs (auto) 1.45 (1.0-4.6) x10^3/uL Absolute Monos (auto) 0.65 (0.0-1.3) x10^3/uL Absolute Nucleated RBC 0.00 (0.00-0.01) x10^3u/L Lymphocytes % 30.1 (24.0-44.0) % Monocytes % 13.5 H (0.0-12.0) % Eosinophils % 2.5 (0.00-5.0) % Basophils % 0.8 (0.0-0.4) % Absolute Granulocytes 2.54 (1.4-6.9) x10^3/uL Basophils # 0.04 (0-0.4) x10^3/uL D-Dimer (0.0-0.50) mg/L Sodium (137-145) mmol/L Potassium (3.5-5.1) mmol/L Chloride (98-107) mmol/L Carbon Dioxide (22-30) mmol/L Anion Gap (5-15) MEQ/L BUN (9-20) mg/dL Creatinine (0.66-1.25) mg/dL Estimated GFR ML/MIN Glucose (74-106) mg/dL Calcium (8.4-10.2) mg/dL Total Bilirubin (0.2-1.3) mg/dL AST (17-59) U/L ALT (0-50) U/L Alkaline Phosphatase (38-126) U/L Troponin I < 0.012 (0.000-0.034) ng/mL NT-Pro-B Natriuret Pep (<300) pg/mL Serum Total Protein (6.3-8.2) g/dL Albumin (3.5-5.0) g/dL Influenza Type A Ag NEGATIVE (NEGATIVE) Influenza Type B Ag NEGATIVE (NEGATIVE) RSV (PCR) NEGATIVE (NEGATIVE) SARS-CoV-2 (PCR) NEGATIVE (NEGATIVE) 12/07/23 12/07/23 Range/Units 05:10 05:10 WBC (4.0-10.5) x10^3/uL RBC (4.1-5.6) x10^6/uL Hgb (12.5-18.0) g/dL Hct (42-50) % MCV (78-100) fL MCH (26-32) pg MCHC (32-36) g/dL RDW (11.5-14.0) % Plt Count (150-450) x10^3/uL MPV (7.5-11.0) fL Gran % (36.0-66.0) % Immature Gran % (Auto) (0.00-0.4) % Nucleat RBC Rel Count (0.00-0.1) % Eos # (Auto) (0-0.5) x10^3/uL Immature Gran # (Auto) (0.00-0.03) x10^3u/L Absolute Lymphs (auto) (1.0-4.6) x10^3/uL Absolute Monos (auto) (0.0-1.3) x10^3/uL Absolute Nucleated RBC (0.00-0.01) x10^3u/L Lymphocytes % (24.0-44.0) % Monocytes % (0.0-12.0) % Eosinophils % (0.00-5.0) % Basophils % (0.0-0.4) % Absolute Granulocytes (1.4-6.9) x10^3/uL Basophils # (0-0.4) x10^3/uL D-Dimer 0.49 (0.0-0.50) mg/L Sodium 135 L (137-145) mmol/L Potassium 4.0 (3.5-5.1) mmol/L Chloride 103 (98-107) mmol/L Carbon Dioxide 28 (22-30) mmol/L Anion Gap 7.8 (5-15) MEQ/L BUN 19 (9-20) mg/dL Creatinine 1.39 H (0.66-1.25) mg/dL Estimated GFR 53.2 ML/MIN Glucose 126 H (74-106) mg/dL Calcium 8.9 (8.4-10.2) mg/dL Total Bilirubin 0.30 (0.2-1.3) mg/dL AST 24 (17-59) U/L ALT 26 (0-50) U/L Alkaline Phosphatase 61 (38-126) U/L Troponin I (0.000-0.034) ng/mL NT-Pro-B Natriuret Pep < 20.0 (<300) pg/mL Serum Total Protein 6.8 (6.3-8.2) g/dL Albumin 4.0 (3.5-5.0) g/dL Influenza Type A Ag (NEGATIVE) Influenza Type B Ag (NEGATIVE) RSV (PCR) (NEGATIVE) SARS-CoV-2 (PCR) (NEGATIVE) - Progress Progress: improved Progress Note: Case discussed with Dr. Zuniga at 8:[address] Zuniga accepts admission to observation. Plan of care discussed with patient. He agrees to admission at [facility] for further evaluation and treatment. Portions of this note were created with voice recognition technology. There may be grammatical, spelling, punctuation or sound alike errors 73-year-old male presents to our ED for evaluation of lightheadedness and syncope. Patient symptoms are progressive. Patient denies a history of the same. Workup includes EKG which revealed normal sinus rhythm. Chest x-ray shows no acute findings. CT head shows mild paranasal sinus disease otherwise no acute findings. CBC essentially nonremarkable. CMP reveals hyponatremia and elevated creatinine. COVID test negative. D-dimer negative. BNP within normal limits. Troponin negative as well. Patient ambulated throughout our ED. No active symptoms. In light of patient's age and syncopal episode patient will be admitted for further evaluation and treatment. Plan of care discussed with patient. He agrees to admission to [facility] for further evaluation and treatment. Portions of this note were created with voice recognition technology. There may be grammatical, spelling, punctuation or sound alike errors Complexity problem addressed is moderate acute complicated No critical care time Complex of data reviewed and analyzed is extensive. Test ordered test reviewed. Results analyzed and correlated clinically with history and physical exam. Management discussed with hospitalist who accepts admission to observation. Risk complication and a risk of morbidity/mortality patient management is high. Patient requires hospitalization for further evaluation and treatment. Vital stable. Time spent admit patient is approximately 20 minutes. Plan of care established for shared decision making. Portions of this note were created with voice recognition technology. There may be grammatical, spelling, punctuation or sound alike errors 12/07/23 21:14 Counseled pt/family regarding: lab results, diagnosis, rad results - Departure Departure Disposition: Observation Clinical Impression: Paranasal sinus disease, Lightheadedness, Near syncope, Dehydration, Hyponatremia Condition: Stable Critical Care Time: No Referrals: ALEXANDER JAVED MD [Primary Care Provider] - Follow up/PCP as directed Instructions: Syncope (fainting)
[2023-12-07 17:14] LABS: INFLUENZA A NEGATIVE (NEGATIVE); INFLUENZA B NEGATIVE (NEGATIVE); RESPIRATORY SYNCTIAL VIRUS NEGATIVE (NEGATIVE); SARS-CoV-2 Xpert Express NEGATIVE (NEGATIVE)
[2023-12-07 17:14] LABS: Absolute Neutrophil Ct (ANC) 2.54 x10^3/uL (1.4-6.9); BASOPHIL % 0.8 % (0.0-0.4); Basophil (Absolute #) 0.04 x10^3/uL (0-0.4); Eosinophil % 2.5 % (0.00-5.0); Eosinophil (Absolute #) 0.12 x10^3/uL (0-0.5); Hematocrit 40.6 % (42-50); Hemoglobin 12.4 g/dL (12.5-18.0); IMMATURE GRAN # 0.02 x10^3u/L (0.00-0.03); IMMATURE GRAN % 0.4 % (0.00-0.4); Lymphocyte (Absolute #) 1.45 x10^3/uL (1.0-4.6); Lymphocytes % 30.1 % (24.0-44.0); Mean Cell Volume 83.4 fL (78-100); Mean Corpuscular Hemoglobin 25.5 pg (26-32); Mean Corpuscular Hgb Concent. 30.5 g/dL (32-36); Mean Platelet Volume 9.9 fL (7.5-11.0); Monocyte (Absolute #) 0.65 x10^3/uL (0.0-1.3); Monocytes % 13.5 % (0.0-12.0); Neutrophil % 52.7 % (36.0-66.0); Platelet Count 275 x10^3/uL (150-450); Red Blood Count 4.87 x10^6/uL (4.1-5.6); Red Cell Distribution Width 15.8 % (11.5-14.0); White Blood Count 4.8 x10^3/uL (4.0-10.5)
[2023-12-07 17:36] LABS: ALKALINE PHOSPHATASE 61 U/L (38-126); ANION GAP 7.8 MEQ/L (5-15); BLOOD UREA NITROGEN 19 mg/dL (9-20); CHLORIDE 103 mmol/L (98-107); Calcium 8.9 mg/dL (8.4-10.2); Carbon Dioxide 28 mmol/L (22-30); Creatinine 1 1.39 mg/dL (0.66-1.25); EST GLOMERULAR FILTRATION RATE 53.2 ML/MIN; Glucose 126 mg/dL (74-106); NT PRO BNPII < 20.0 pg/mL (<300); SGOT/AST 24 U/L (17-59); SGPT/ALT 26 U/L (0-50); SODIUM 135 mmol/L (137-145); Total Protein 6.8 g/dL (6.3-8.2)
[2023-12-07] MEDS ORDERED: Sodium Chloride 0.9% 1000 ML 1,000 ML ONE (21:01)
[2023-12-07] MEDS: Sodium Chloride 0.9% 1000 ML 1,000 ML IV SCH ×2 (21:03→23:45)
[2023-12-07 23:47] LABS: ADD URINE CULTURE? NO (NO); Appearance Clear (Clear); Bacteria None Seen /HPF (None Seen); Bilirubin Negative (Negative); Blood Negative (Negative); Epithelial Cells None Seen /HPF (None Seen); Glucose, Urine Negative (Negative); Hyaline Casts NONE SEEN /LPF (0-2); Ketones Negative (Negative); Leukocyte Esterase Negative (Negative); Nitrite Negative (Negative); Ph 5.5 (4.6-8.0); Protein,Urine Dip Negative (Negative); RBC 0-2 /HPF (0-5); Specific Gravity 1.025 (1.005-1.030); WBC 0-2 /HPF (0-5)
--- NOTE | 2023-12-08 00:15 | PCM.HP ---
History of Present Illness - Chief Complaint Chief Complaint: Lightheadedness, syncope Date: 12/07/23 History of Present Illness: Mr. Wright is a 73 year old male with a past medical history significant for severe neuropathy who has been having issues with syncopal episodes for the past few years, but today, he apparently passed out for a short period of time, according to his . He had seen his PCP a couple weeks ago for similar symptoms and it was felt to be a low blood pressure issue, so he was started on midodrine, but without improvement. He has been taking very high doses of gabapentin and amitriptyline to deal with his neuropathy, and is not interested in reducing doses to see if it would help with his syncope. No chest pain or palpitations. No lightheaded, dizziness or sensation the room is spinning. No focal weakness or changes in vision. - Review of Systems Constitutional: No Fever, No Chills, No Fatigue Eyes: No Eye Pain, No Eye Redness, No Vision Changes Ears, Nose, & Throat: No Nose Discharge, No Sinus Drainage Respiratory: No Orthopnea, No Short Of Breath Cardiac: No Chest Pain, No Edema, No Palpitations Abdominal/Gastrointestinal: No Abdominal Pain, No Nausea, No Vomiting, No Diarrhea Genitourinary Symptoms: No Dysuria, No Frequency Musculoskeletal: No Arthralgias, No Back Pain Skin: No Cellulitis Neurological: No Dizziness, No Focal Weakness, No Headache Psychological: No Suicidal Ideations Endocrine: No Polyuria, No Polydipsia Medications & Allergies Home Medications: Home Medication List Amitriptyline HCl 150 mg PO BID 01/14/19 [History Confirmed 12/07/23] Gabapentin 1,600 mg PO BID 01/14/19 [History Confirmed 12/07/23] Midodrine HCl 2.5 mg PO BID 12/07/23 [History Confirmed 12/07/23] Allergies/Adverse Reactions: Allergies Allergy/AdvReac Type Severity Reaction Status Date / Time No Known Drug Allergies Allergy Verified 11/13/23 11:17 - Past Medical History Past Medical History: Yes Neurological History: Peripheral Neuropathy ENT History: No Pertinent History Cardiac History: No Pertinent History, Hypertension Respiratory History: No Pertinent History Endocrine Medical History: No Pertinent History Musculoskelatal History: No Pertinent History GI Medical History: No Pertinent History History: No Pertinent History Pyscho-Social History: No Pertinent History Male Reproductive Disorders: No Pertinent History - Past Surgical History Past Surgical History: Yes Neuro Surgical History: No Pertinent History Cardiac History: No Pertinent History Respiratory Surgery: No Pertinent History GI Surgical History: Cholecystectomy, Hernia Repair Genitourinary Surgical Hx: No Pertinent History Musculskeletal Surgical Hx: Orthopedic Surgery Male Surgical History: No Pertinent History Other Surgical History: back surgery - Social History Smoking Status: Never smoker Exposure to second hand smoke: No Alcohol: None Drug Use: none - Physical Exam Vital Signs: Vital Signs - 24 hr Temp Pulse Resp BP BP Pulse Ox 12/07/23 23:54 97.6 F 82 18 130/69 97 12/07/23 23:46 97.3 F 76 22 160/98 95 12/07/23 23:02 76 12/07/23 22:01 97.3 F 72 22 160/98 95 12/07/23 22:00 97 12/07/23 21:27 95 12/07/23 21:15 72 20 128/82 95 12/07/23 21:01 73 17 115/83 94 L 12/07/23 20:46 81 19 129/101 12/07/23 20:31 74 16 133/86 96 12/07/23 20:15 80 22 128/89 95 12/07/23 20:00 77 20 112/86 95 12/07/23 19:45 81 12 129/81 95 12/07/23 19:30 78 17 130/92 94 L 12/07/23 19:15 77 20 143/87 94 L 12/07/23 19:00 75 20 119/90 96 12/07/23 18:59 75 18 97 12/07/23 18:51 82 21 96 12/07/23 18:30 122/80 12/07/23 18:15 78 18 123/82 96 12/07/23 18:00 78 19 124/80 96 12/07/23 17:45 77 19 116/81 12/07/23 17:30 81 18 119/82 12/07/23 17:15 82 19 123/91 12/07/23 17:06 95 12/07/23 17:00 82 19 123/84 95 12/07/23 16:45 83 20 126/87 95 12/07/23 16:31 85 21 118/83 94 L 12/07/23 16:15 87 18 128/78 92 L 12/07/23 16:14 97.2 F 87 20 128/89 95 General Appearance: no apparent distress Neurologic Exam: alert, oriented x 3 Ears, Nose, Throat Exam: dry mucous membranes Neck Exam: supple Respiratory Exam: No accessory muscle use, No rhonchi, No wheezing Cardiovascular Exam: regular rate/rhythm Gastrointestinal/Abdomen Exam: soft Extremity Exam: No pedal edema Skin Exam: warm, dry, No rash Results - Labs Lab/Micro Results: Lab Results-Last 24 Hours 12/07/23 12/07/23 12/07/23 Range/Units 05:10 05:10 05:10 WBC (4.0-10.5) x10^3/uL RBC (4.1-5.6) x10^6/uL Hgb (12.5-18.0) g/dL Hct (42-50) % MCV (78-100) fL MCH (26-32) pg MCHC (32-36) g/dL RDW (11.5-14.0) % Plt Count (150-450) x10^3/uL MPV (7.5-11.0) fL Gran % (36.0-66.0) % Immature Gran % (Auto) (0.00-0.4) % Nucleat RBC Rel Count (0.00-0.1) % Eos # (Auto) (0-0.5) x10^3/uL Immature Gran # (Auto) (0.00-0.03) x10^3u/L Absolute Lymphs (auto) (1.0-4.6) x10^3/uL Absolute Monos (auto) (0.0-1.3) x10^3/uL Absolute Nucleated RBC (0.00-0.01) x10^3u/L Lymphocytes % (24.0-44.0) % Monocytes % (0.0-12.0) % Eosinophils % (0.00-5.0) % Basophils % (0.0-0.4) % Absolute Granulocytes (1.4-6.9) x10^3/uL Basophils # (0-0.4) x10^3/uL D-Dimer 0.49 (0.0-0.50) mg/L Sodium 135 L (137-145) mmol/L Potassium 4.0 (3.5-5.1) mmol/L Chloride 103 (98-107) mmol/L Carbon Dioxide 28 (22-30) mmol/L Anion Gap 7.8 (5-15) MEQ/L BUN 19 (9-20) mg/dL Creatinine 1.39 H (0.66-1.25) mg/dL Estimated GFR 53.2 ML/MIN Glucose 126 H (74-106) mg/dL Calcium 8.9 (8.4-10.2) mg/dL Total Bilirubin 0.30 (0.2-1.3) mg/dL AST 24 (17-59) U/L ALT 26 (0-50) U/L Alkaline Phosphatase 61 (38-126) U/L Troponin I < 0.012 (0.000-0.034) ng/mL NT-Pro-B Natriuret Pep < 20.0 (<300) pg/mL Serum Total Protein 6.8 (6.3-8.2) g/dL Albumin 4.0 (3.5-5.0) g/dL Urine Color (Yellow) Urine Appearance (Clear) Urine pH (4.6-8.0) Ur Specific [place] (1.005-1.030) Urine Protein (Negative) Urine Glucose (UA) (Negative) mg/dL Urine Ketones (Negative) Urine Blood (Negative) Urine Nitrite (Negative) Urine Bilirubin (Negative) Urine Urobilinogen (0.2) mg/dL Ur Leukocyte Esterase (Negative) U Hyaline Cast (Auto) (0-2) /LPF Urine Microscopic RBC (0-5) /HPF Urine Microscopic WBC (0-5) /HPF Ur Epithelial Cells (None Seen) /HPF Urine Bacteria (None Seen) /HPF Urine Culture Reflexed (NO) Influenza Type A Ag (NEGATIVE) Influenza Type B Ag (NEGATIVE) RSV (PCR) (NEGATIVE) SARS-CoV-2 (PCR) (NEGATIVE) 12/07/23 12/07/23 12/07/23 Range/Units 16:32 16:55 20:20 WBC 4.8 (4.0-10.5) x10^3/uL RBC 4.87 (4.1-5.6) x10^6/uL Hgb 12.4 L (12.5-18.0) g/dL Hct 40.6 L (42-50) % MCV 83.4 (78-100) fL MCH 25.5 L (26-32) pg MCHC 30.5 L (32-36) g/dL RDW 15.8 H (11.5-14.0) % Plt Count 275 (150-450) x10^3/uL MPV 9.9 (7.5-11.0) fL Gran % 52.7 (36.0-66.0) % Immature Gran % (Auto) 0.4 (0.00-0.4) % Nucleat RBC Rel Count 0.0 (0.00-0.1) % Eos # (Auto) 0.12 (0-0.5) x10^3/uL Immature Gran # (Auto) 0.02 (0.00-0.03) x10^3u/L Absolute Lymphs (auto) 1.45 (1.0-4.6) x10^3/uL Absolute Monos (auto) 0.65 (0.0-1.3) x10^3/uL Absolute Nucleated RBC 0.00 (0.00-0.01) x10^3u/L Lymphocytes % 30.1 (24.0-44.0) % Monocytes % 13.5 H (0.0-12.0) % Eosinophils % 2.5 (0.00-5.0) % Basophils % 0.8 (0.0-0.4) % Absolute Granulocytes 2.54 (1.4-6.9) x10^3/uL Basophils # 0.04 (0-0.4) x10^3/uL D-Dimer (0.0-0.50) mg/L Sodium (137-145) mmol/L Potassium (3.5-5.1) mmol/L Chloride (98-107) mmol/L Carbon Dioxide (22-30) mmol/L Anion Gap (5-15) MEQ/L BUN (9-20) mg/dL Creatinine (0.66-1.25) mg/dL Estimated GFR ML/MIN Glucose (74-106) mg/dL Calcium (8.4-10.2) mg/dL Total Bilirubin (0.2-1.3) mg/dL AST (17-59) U/L ALT (0-50) U/L Alkaline Phosphatase (38-126) U/L Troponin I < 0.012 (0.000-0.034) ng/mL NT-Pro-B Natriuret Pep (<300) pg/mL Serum Total Protein (6.3-8.2) g/dL Albumin (3.5-5.0) g/dL Urine Color (Yellow) Urine Appearance (Clear) Urine pH (4.6-8.0) Ur Specific [place] (1.005-1.030) Urine Protein (Negative) Urine Glucose (UA) (Negative) mg/dL Urine Ketones (Negative) Urine Blood (Negative) Urine Nitrite (Negative) Urine Bilirubin (Negative) Urine Urobilinogen (0.2) mg/dL Ur Leukocyte Esterase (Negative) U Hyaline Cast (Auto) (0-2) /LPF Urine Microscopic RBC (0-5) /HPF Urine Microscopic WBC (0-5) /HPF Ur Epithelial Cells (None Seen) /HPF Urine Bacteria (None Seen) /HPF Urine Culture Reflexed (NO) Influenza Type A Ag NEGATIVE (NEGATIVE) Influenza Type B Ag NEGATIVE (NEGATIVE) RSV (PCR) NEGATIVE (NEGATIVE) SARS-CoV-2 (PCR) NEGATIVE (NEGATIVE) 12/07/23 Range/Units 23:28 WBC (4.0-10.5) x10^3/uL RBC (4.1-5.6) x10^6/uL Hgb (12.5-18.0) g/dL Hct (42-50) % MCV (78-100) fL MCH (26-32) pg MCHC (32-36) g/dL RDW (11.5-14.0) % Plt Count (150-450) x10^3/uL MPV (7.5-11.0) fL Gran % (36.0-66.0) % Immature Gran % (Auto) (0.00-0.4) % Nucleat RBC Rel Count (0.00-0.1) % Eos # (Auto) (0-0.5) x10^3/uL Immature Gran # (Auto) (0.00-0.03) x10^3u/L Absolute Lymphs (auto) (1.0-4.6) x10^3/uL Absolute Monos (auto) (0.0-1.3) x10^3/uL Absolute Nucleated RBC (0.00-0.01) x10^3u/L Lymphocytes % (24.0-44.0) % Monocytes % (0.0-12.0) % Eosinophils % (0.00-5.0) % Basophils % (0.0-0.4) % Absolute Granulocytes (1.4-6.9) x10^3/uL Basophils # (0-0.4) x10^3/uL D-Dimer (0.0-0.50) mg/L Sodium (137-145) mmol/L Potassium (3.5-5.1) mmol/L Chloride (98-107) mmol/L Carbon Dioxide (22-30) mmol/L Anion Gap (5-15) MEQ/L BUN (9-20) mg/dL Creatinine (0.66-1.25) mg/dL Estimated GFR ML/MIN Glucose (74-106) mg/dL Calcium (8.4-10.2) mg/dL Total Bilirubin (0.2-1.3) mg/dL AST (17-59) U/L ALT (0-50) U/L Alkaline Phosphatase (38-126) U/L Troponin I (0.000-0.034) ng/mL NT-Pro-B Natriuret Pep (<300) pg/mL Serum Total Protein (6.3-8.2) g/dL Albumin (3.5-5.0) g/dL Urine Color Yellow (Yellow) Urine Appearance Clear (Clear) Urine pH 5.5 (4.6-8.0) Ur Specific [place] 1.025 (1.005-1.030) Urine Protein Negative (Negative) Urine Glucose (UA) Negative (Negative) mg/dL Urine Ketones Negative (Negative) Urine Blood Negative (Negative) Urine Nitrite Negative (Negative) Urine Bilirubin Negative (Negative) Urine Urobilinogen 1.0 A (0.2) mg/dL Ur Leukocyte Esterase Negative (Negative) U Hyaline Cast (Auto) NONE SEEN (0-2) /LPF Urine Microscopic RBC 0-2 (0-5) /HPF Urine Microscopic WBC 0-2 (0-5) /HPF Ur Epithelial Cells None Seen (None Seen) /HPF Urine Bacteria None Seen (None Seen) /HPF Urine Culture Reflexed NO (NO) Influenza Type A Ag (NEGATIVE) Influenza Type B Ag (NEGATIVE) RSV (PCR) (NEGATIVE) SARS-CoV-2 (PCR) (NEGATIVE) - Radiology Impressions Radiology Exams & Impressions: Radiology Procedures Category Date Time Status CAROTID BILATERAL [US] Routine Exams 12/07/23 22:09 Ordered CHEST 1 VIEW (PORTABLE) Stat Exams 12/07/23 18:08 Taken HEAD WITHOUT CONTRAST [CT] Stat Exams 12/07/23 18:31 Taken Assessment/Plan (1) Acute kidney injury Current Visit: Yes Status: Acute Assessment & Plan: Likely from prerenal azotemia with elevated urine specific gravity with baseline Cr ~ 1.1 1. IVFs 2. Encourage PO intake 3. Follow I/Os 4. Watch electrolytes, creatinine closely Code(s): N17.9 - ACUTE KIDNEY FAILURE, UNSPECIFIED (2) Near syncope Current Visit: Yes Status: Acute Assessment & Plan: Likely from medications with high doses of gabapentin/amitriptyline but need to rule out cardiac/neuro causes 1. Reduce doses of meds 2. Telemetry 3. Carotid dopplers 4. Continue Midodrine for orthostatic hypotension (3) Hyponatremia Current Visit: Yes Status: Acute Code(s): E87.1 - HYPO-OSMOLALITY AND HYPONATREMIA Telemedicine Encounter - Telemedicine Encounter Telemedicine Encounter: The entirety of this encounter was performed via Telemedicine"
[2023-12-08] MEDS: NEURONTIN PO SCH (00:17)
[2023-12-08] MEDS: PROAMATINE PO SCH ×2 (00:18→08:00)
[2023-12-08 02:27] LABS: Hematocrit 39.7 % (42-50); Hemoglobin 11.9 g/dL (12.5-18.0); Mean Cell Volume 84.5 fL (78-100); Mean Corpuscular Hemoglobin 25.3 pg (26-32); Mean Platelet Volume 9.5 fL (7.5-11.0); Platelet Count 265 x10^3/uL (150-450); Red Cell Distribution Width 15.8 % (11.5-14.0); White Blood Count 4.8 x10^3/uL (4.0-10.5)
[2023-12-08 02:52] LABS: ALBUMIN 3.7 g/dL (3.5-5.0); ANION GAP 7.7 MEQ/L (5-15); BILIRUBIN,TOTAL 0.4 mg/dL (0.2-1.3); Calcium 8.8 mg/dL (8.4-10.2); Creatinine 1 1.21 mg/dL (0.66-1.25); EST GLOMERULAR FILTRATION RATE 62.8 ML/MIN; Potassium 3.9 mmol/L (3.5-5.1); Total Protein 6.5 g/dL (6.3-8.2)
[2023-12-08 08:05] VITALS: O2SAT 98
--- NOTE | 2023-12-08 08:41 | XRAY ---
Indication: Lightheadedness. Multiple contiguous axial images obtained through the head without contrast. Comparison: April 28, 2020 Normal appearing brain parenchyma, ventricles, and bony calvarium for patient's age. New mild mucosal thickening both maxillary/ethmoid sinuses with tiny bilateral maxillary sinus fluid leveling. Mastoid air cells are clear. Impression: New paranasal sinus disease. Remaining CT head without contrast exam is again normal.
--- NOTE | 2023-12-08 08:44 | XRAY ---
Indication: Cough. Comparison: January 16, 2019 Portable apical lordotic chest is now clear. Heart not enlarged again with moderate sized hiatal hernia. Bony thorax intact again with osteopenia and mild degenerative changes. New epidural lead terminates T8. Impression: Nonacute chest with chronic features.
--- NOTE | 2023-12-08 11:01 | XRAY ---
Indication: Syncope. Two-dimensional sonogram and color Doppler imaging carotid arteries of the neck performed. Comparison: None Examination right carotid circulation demonstrates tortuous common carotid and distal internal carotid arteries. Minimal eccentric soft plaquing carotid bulb. Remaining common carotid, internal carotid, and external carotid arteries are widely patent. PSV CCA is 79 cm/s. PSV ICA is 52 cm/s. ICA/CCA ratio is 0.7. Normal antegrade vertebral artery flow. Examination left carotid circulation demonstrates minimal eccentric soft plaquing origin internal carotid and proximal external carotid arteries. Widely patent common carotid and carotid bulb. PSV CCA is 72 cm/s. PSV ICA is 67 cm/s. ICA/CCA ratio is 0.9. Normal antegrade vertebral artery flow. Impression: Minimal arteriosclerotic plaquing bilaterally as detailed. Velocity measurements and ratios negative for hemodynamically significant flow-limiting stenosis.
--- NOTE | 2023-12-08 11:24 | PCM.DS ---
Discharge Summary Date of Admission: 12/07/23 21:52 Date of Discharge: 12/08/23 Admitting Physician: SID RITTER MD Primary Care Provider: ALEXANDER JAVED Allergies Allergies No Known Drug Allergies Allergy (Verified 11/13/23 11:17) Hospital Summary - Hospital Course Hospital Course: Mr. Wright is a 73 year old male with a past medical history significant for severe neuropathy who has been having issues with syncopal episodes for the past few years, but today, he apparently passed out for a short period of time, according to his . He had seen his PCP a couple weeks ago for similar symptoms and it was felt to be a low blood pressure issue, so he was started on midodrine, but without improvement. He has been taking very high doses of gabapentin and amitriptyline to deal with his neuropathy, and is not interested in reducing doses to see if it would help with his syncope. No chest pain or palpitations. No lightheaded, dizziness or sensation the room is spinning. No focal weakness or changes in vision. Carotid US, head CT, and Chest XR all nonconcerning. PT would like to go home. Pt denies any further concerns at this time. - Vitals & Intake/Output Vital Signs: Vital Signs Temperature 97.1 F 12/08/23 08:00 Pulse Rate 70 12/08/23 08:00 Respiratory Rate 19 12/08/23 08:00 Blood Pressure 143/88 12/08/23 08:00 O2 Sat by Pulse Oximetry 98 12/08/23 08:00 Intake & Output: Intake & Output 12/05/23 12/06/23 12/07/23 12/08/23 11:59 11:59 11:59 11:59 Intake Total 921 Output Total 325 Balance 596 Weight 106 kg - Lab Result Diagrams: 12/08/23 02:20 12/08/23 02:20 Lab Results-Last 24 Hrs: Lab Results-Last 24 Hours 12/07/23 12/07/23 12/07/23 Range/Units 05:10 05:10 05:10 WBC (4.0-10.5) x10^3/uL RBC (4.1-5.6) x10^6/uL Hgb (12.5-18.0) g/dL Hct (42-50) % MCV (78-100) fL MCH (26-32) pg MCHC (32-36) g/dL RDW (11.5-14.0) % Plt Count (150-450) x10^3/uL MPV (7.5-11.0) fL Gran % (36.0-66.0) % Immature Gran % (Auto) (0.00-0.4) % Nucleat RBC Rel Count (0.00-0.1) % Eos # (Auto) (0-0.5) x10^3/uL Immature Gran # (Auto) (0.00-0.03) x10^3u/L Absolute Lymphs (auto) (1.0-4.6) x10^3/uL Absolute Monos (auto) (0.0-1.3) x10^3/uL Absolute Nucleated RBC (0.00-0.01) x10^3u/L Lymphocytes % (24.0-44.0) % Monocytes % (0.0-12.0) % Eosinophils % (0.00-5.0) % Basophils % (0.0-0.4) % Absolute Granulocytes (1.4-6.9) x10^3/uL Basophils # (0-0.4) x10^3/uL D-Dimer 0.49 (0.0-0.50) mg/L Sodium 135 L (137-145) mmol/L Potassium 4.0 (3.5-5.1) mmol/L Chloride 103 (98-107) mmol/L Carbon Dioxide 28 (22-30) mmol/L Anion Gap 7.8 (5-15) MEQ/L BUN 19 (9-20) mg/dL Creatinine 1.39 H (0.66-1.25) mg/dL Estimated GFR 53.2 ML/MIN Glucose 126 H (74-106) mg/dL Calcium 8.9 (8.4-10.2) mg/dL Total Bilirubin 0.30 (0.2-1.3) mg/dL AST 24 (17-59) U/L ALT 26 (0-50) U/L Alkaline Phosphatase 61 (38-126) U/L Troponin I < 0.012 (0.000-0.034) ng/mL NT-Pro-B Natriuret Pep < 20.0 (<300) pg/mL Serum Total Protein 6.8 (6.3-8.2) g/dL Albumin 4.0 (3.5-5.0) g/dL Urine Color (Yellow) Urine Appearance (Clear) Urine pH (4.6-8.0) Ur Specific Bulan (1.005-1.030) Urine Protein (Negative) Urine Glucose (UA) (Negative) mg/dL Urine Ketones (Negative) Urine Blood (Negative) Urine Nitrite (Negative) Urine Bilirubin (Negative) Urine Urobilinogen (0.2) mg/dL Ur Leukocyte Esterase (Negative) U Hyaline Cast (Auto) (0-2) /LPF Urine Microscopic RBC (0-5) /HPF Urine Microscopic WBC (0-5) /HPF Ur Epithelial Cells (None Seen) /HPF Urine Bacteria (None Seen) /HPF Urine Culture Reflexed (NO) Influenza Type A Ag (NEGATIVE) Influenza Type B Ag (NEGATIVE) RSV (PCR) (NEGATIVE) SARS-CoV-2 (PCR) (NEGATIVE) 12/07/23 12/07/23 12/07/23 Range/Units 16:32 16:55 20:20 WBC 4.8 (4.0-10.5) x10^3/uL RBC 4.87 (4.1-5.6) x10^6/uL Hgb 12.4 L (12.5-18.0) g/dL Hct 40.6 L (42-50) % MCV 83.4 (78-100) fL MCH 25.5 L (26-32) pg MCHC 30.5 L (32-36) g/dL RDW 15.8 H (11.5-14.0) % Plt Count 275 (150-450) x10^3/uL MPV 9.9 (7.5-11.0) fL Gran % 52.7 (36.0-66.0) % Immature Gran % (Auto) 0.4 (0.00-0.4) % Nucleat RBC Rel Count 0.0 (0.00-0.1) % Eos # (Auto) 0.12 (0-0.5) x10^3/uL Immature Gran # (Auto) 0.02 (0.00-0.03) x10^3u/L Absolute Lymphs (auto) 1.45 (1.0-4.6) x10^3/uL Absolute Monos (auto) 0.65 (0.0-1.3) x10^3/uL Absolute Nucleated RBC 0.00 (0.00-0.01) x10^3u/L Lymphocytes % 30.1 (24.0-44.0) % Monocytes % 13.5 H (0.0-12.0) % Eosinophils % 2.5 (0.00-5.0) % Basophils % 0.8 (0.0-0.4) % Absolute Granulocytes 2.54 (1.4-6.9) x10^3/uL Basophils # 0.04 (0-0.4) x10^3/uL D-Dimer (0.0-0.50) mg/L Sodium (137-145) mmol/L Potassium (3.5-5.1) mmol/L Chloride (98-107) mmol/L Carbon Dioxide (22-30) mmol/L Anion Gap (5-15) MEQ/L BUN (9-20) mg/dL Creatinine (0.66-1.25) mg/dL Estimated GFR ML/MIN Glucose (74-106) mg/dL Calcium (8.4-10.2) mg/dL Total Bilirubin (0.2-1.3) mg/dL AST (17-59) U/L ALT (0-50) U/L Alkaline Phosphatase (38-126) U/L Troponin I < 0.012 (0.000-0.034) ng/mL NT-Pro-B Natriuret Pep (<300) pg/mL Serum Total Protein (6.3-8.2) g/dL Albumin (3.5-5.0) g/dL Urine Color (Yellow) Urine Appearance (Clear) Urine pH (4.6-8.0) Ur Specific Bulan (1.005-1.030) Urine Protein (Negative) Urine Glucose (UA) (Negative) mg/dL Urine Ketones (Negative) Urine Blood (Negative) Urine Nitrite (Negative) Urine Bilirubin (Negative) Urine Urobilinogen (0.2) mg/dL Ur Leukocyte Esterase (Negative) U Hyaline Cast (Auto) (0-2) /LPF Urine Microscopic RBC (0-5) /HPF Urine Microscopic WBC (0-5) /HPF Ur Epithelial Cells (None Seen) /HPF Urine Bacteria (None Seen) /HPF Urine Culture Reflexed (NO) Influenza Type A Ag NEGATIVE (NEGATIVE) Influenza Type B Ag NEGATIVE (NEGATIVE) RSV (PCR) NEGATIVE (NEGATIVE) SARS-CoV-2 (PCR) NEGATIVE (NEGATIVE) 12/07/23 12/08/23 12/08/23 Range/Units 23:28 02:20 02:20 WBC 4.8 (4.0-10.5) x10^3/uL RBC 4.70 (4.1-5.6) x10^6/uL Hgb 11.9 L (12.5-18.0) g/dL Hct 39.7 L (42-50) % MCV 84.5 (78-100) fL MCH 25.3 L (26-32) pg MCHC 30.0 L (32-36) g/dL RDW 15.8 H (11.5-14.0) % Plt Count 265 (150-450) x10^3/uL MPV 9.5 (7.5-11.0) fL Gran % (36.0-66.0) % Immature Gran % (Auto) (0.00-0.4) % Nucleat RBC Rel Count (0.00-0.1) % Eos # (Auto) (0-0.5) x10^3/uL Immature Gran # (Auto) (0.00-0.03) x10^3u/L Absolute Lymphs (auto) (1.0-4.6) x10^3/uL Absolute Monos (auto) (0.0-1.3) x10^3/uL Absolute Nucleated RBC (0.00-0.01) x10^3u/L Lymphocytes % (24.0-44.0) % Monocytes % (0.0-12.0) % Eosinophils % (0.00-5.0) % Basophils % (0.0-0.4) % Absolute Granulocytes (1.4-6.9) x10^3/uL Basophils # (0-0.4) x10^3/uL D-Dimer (0.0-0.50) mg/L Sodium (137-145) mmol/L Potassium (3.5-5.1) mmol/L Chloride (98-107) mmol/L Carbon Dioxide (22-30) mmol/L Anion Gap (5-15) MEQ/L BUN (9-20) mg/dL Creatinine (0.66-1.25) mg/dL Estimated GFR ML/MIN Glucose (74-106) mg/dL Calcium (8.4-10.2) mg/dL Total Bilirubin (0.2-1.3) mg/dL AST (17-59) U/L ALT (0-50) U/L Alkaline Phosphatase (38-126) U/L Troponin I < 0.012 (0.000-0.034) ng/mL NT-Pro-B Natriuret Pep (<300) pg/mL Serum Total Protein (6.3-8.2) g/dL Albumin (3.5-5.0) g/dL Urine Color Yellow (Yellow) Urine Appearance Clear (Clear) Urine pH 5.5 (4.6-8.0) Ur Specific Bulan 1.025 (1.005-1.030) Urine Protein Negative (Negative) Urine Glucose (UA) Negative (Negative) mg/dL Urine Ketones Negative (Negative) Urine Blood Negative (Negative) Urine Nitrite Negative (Negative) Urine Bilirubin Negative (Negative) Urine Urobilinogen 1.0 A (0.2) mg/dL Ur Leukocyte Esterase Negative (Negative) U Hyaline Cast (Auto) NONE SEEN (0-2) /LPF Urine Microscopic RBC 0-2 (0-5) /HPF Urine Microscopic WBC 0-2 (0-5) /HPF Ur Epithelial Cells None Seen (None Seen) /HPF Urine Bacteria None Seen (None Seen) /HPF Urine Culture Reflexed NO (NO) Influenza Type A Ag (NEGATIVE) Influenza Type B Ag (NEGATIVE) RSV (PCR) (NEGATIVE) SARS-CoV-2 (PCR) (NEGATIVE) 12/08/23 Range/Units 02:20 WBC (4.0-10.5) x10^3/uL RBC (4.1-5.6) x10^6/uL Hgb (12.5-18.0) g/dL Hct (42-50) % MCV (78-100) fL MCH (26-32) pg MCHC (32-36) g/dL RDW (11.5-14.0) % Plt Count (150-450) x10^3/uL MPV (7.5-11.0) fL Gran % (36.0-66.0) % Immature Gran % (Auto) (0.00-0.4) % Nucleat RBC Rel Count (0.00-0.1) % Eos # (Auto) (0-0.5) x10^3/uL Immature Gran # (Auto) (0.00-0.03) x10^3u/L Absolute Lymphs (auto) (1.0-4.6) x10^3/uL Absolute Monos (auto) (0.0-1.3) x10^3/uL Absolute Nucleated RBC (0.00-0.01) x10^3u/L Lymphocytes % (24.0-44.0) % Monocytes % (0.0-12.0) % Eosinophils % (0.00-5.0) % Basophils % (0.0-0.4) % Absolute Granulocytes (1.4-6.9) x10^3/uL Basophils # (0-0.4) x10^3/uL D-Dimer (0.0-0.50) mg/L Sodium 138 (137-145) mmol/L Potassium 3.9 (3.5-5.1) mmol/L Chloride 103 (98-107) mmol/L Carbon Dioxide 31 H (22-30) mmol/L Anion Gap 7.7 (5-15) MEQ/L BUN 20 (9-20) mg/dL Creatinine 1.21 (0.66-1.25) mg/dL Estimated GFR 62.8 ML/MIN Glucose 119 H (74-106) mg/dL Calcium 8.8 (8.4-10.2) mg/dL Total Bilirubin 0.40 (0.2-1.3) mg/dL AST 23 (17-59) U/L ALT 23 (0-50) U/L Alkaline Phosphatase 58 (38-126) U/L Troponin I (0.000-0.034) ng/mL NT-Pro-B Natriuret Pep (<300) pg/mL Serum Total Protein 6.5 (6.3-8.2) g/dL Albumin 3.7 (3.5-5.0) g/dL Urine Color (Yellow) Urine Appearance (Clear) Urine pH (4.6-8.0) Ur Specific Bulan (1.005-1.030) Urine Protein (Negative) Urine Glucose (UA) (Negative) mg/dL Urine Ketones (Negative) Urine Blood (Negative) Urine Nitrite (Negative) Urine Bilirubin (Negative) Urine Urobilinogen (0.2) mg/dL Ur Leukocyte Esterase (Negative) U Hyaline Cast (Auto) (0-2) /LPF Urine Microscopic RBC (0-5) /HPF Urine Microscopic WBC (0-5) /HPF Ur Epithelial Cells (None Seen) /HPF Urine Bacteria (None Seen) /HPF Urine Culture Reflexed (NO) Influenza Type A Ag (NEGATIVE) Influenza Type B Ag (NEGATIVE) RSV (PCR) (NEGATIVE) SARS-CoV-2 (PCR) (NEGATIVE) - Radiology Exams Ordered Rad Exams-Entire Visit: Radiology Procedures Category Date Time Status CAROTID BILATERAL [US] Routine Exams 12/08/23 09:45 Completed CHEST 1 VIEW (PORTABLE) Stat Exams 12/07/23 18:08 Completed HEAD WITHOUT CONTRAST [CT] Stat Exams 12/07/23 18:31 Completed Final Diagnosis/Problem List - Final Discharge Diagnosis/Problem (1) Acute kidney injury Current Visit: Yes Status: Resolved Assessment & Plan: - resolved with IVF Code(s): N17.9 - ACUTE KIDNEY FAILURE, UNSPECIFIED (2) Dehydration Current Visit: Yes Status: Resolved Assessment & Plan: -resolved with IVF Code(s): E86.0 - DEHYDRATION (3) Hyponatremia Current Visit: Yes Status: Resolved Assessment & Plan: - resolved Code(s): E87.1 - HYPO-OSMOLALITY AND HYPONATREMIA (4) Near syncope Current Visit: Yes Status: Acute Assessment & Plan: - CT head, chest XR and carotid US reviewed and non-concerning. - Discharge Discharge Date: 12/08/23 Disposition: Home, Self-Care Condition: Stable Prescriptions: Continue Gabapentin 1,600 mg PO BID Amitriptyline HCl 150 mg PO BID Midodrine HCl 2.5 mg PO BID Additional Instructions: Please obtain OTC Flonase and allergy medication for paranasal sinus disease as seen on CT. Saline nasal spray may also help symptoms. This is also OTC. This may be causing your symptoms. Follow up with: ALEXANDER JAVED MD [Primary Care Provider] -
[2023-12-08 12:07] VITALS: BP 156/88; PULSE 81; RESP 17; TEMP 97.3
== END 2023-12-08 12:49 | disposition home or self-care (01) ==
LOC: ED 16:13 → MED SURG 21:50
PROVIDERS: ADMIT Internal Medicine Nephrology; ATTEND Internal Medicine Nephrology
DX: N17.9 Acute kidney failure, unspecified (principal); E86.0 Dehydration; E87.1 Hypo-osmolality and hyponatremia; R55 Syncope and collapse; G62.9 Polyneuropathy, unspecified; I10 Essential (primary) hypertension; Z79.899 Other long term (current) drug therapy; Z20.828 Contact with and (suspected) exposure to other viral communicable diseases
CPT/HCPCS: 0241U; 36000; 36415; 70450; 71045; 80053; 81001; 83880; 84484; 85025; 85027; 85379; 93005; 93041; 93268; 93880; 94760; 99284; G0378; Q3014; A9270-GY

== ENCOUNTER 2024-02-07 17:19 | Emergency (ER) | payer MEDICARE, OTHER ==
[2024-02-07] MEDS ORDERED: Magnesium Sulfate 1 GM/2 ML VIAL ONE (17:32)
[2024-02-07] MEDS ORDERED: SODIUM BICARBONATE 50 MEQ/50 ML ABBOJECT IV ONE (17:44)
[2024-02-07] MEDS ORDERED: DEXTROSE IV ONE (17:44)
[2024-02-07] MEDS ORDERED: WATER IV ONE (17:44)
[2024-02-07] MEDS ORDERED: EPINEPHRINE ABBOJECT 1 MG/10 ML ONE (17:44)
[2024-02-07] MEDS ORDERED: Cordarone 150 MG/3 ML Injection ONE (17:44)
--- NOTE | 2024-02-07 18:06 | ERPHSYRPT ---
- History of Present Illness Time Seen by Provider: 02/07/24 17:19 Source: EMS Exam Limitations: clinical condition Physician History: This is a 73-year-old white male patient who was brought to the emergency department after having 2 witnessed sudden collapses prior to arrival to the emergency department. Patient arrived to the emergency department orotracheally intubated and in ventricular fibrillation. Patient was not shocked prior to arrival. Report provided to us that the patient actually had a palpable pulse in route. Patient did receive 2 rounds of epinephrine intravenously by the paramedics. Patient has a significant cardiac history as well as significant peripheral vascular disease. Patient arrives with bilateral lower extremities mottling and unresponsive as well as bilateral pupils being fixed and dilated. The air sampling and monitoring shows ventricular fibrillation Timing/Duration: today Severity: severe Modifying Factors: Improves With: nothing Associated Symptoms: denies symptoms, other (Patient in cardiac arrest) Allergies/Adverse Reactions: No Known Drug Allergies Allergy (Verified 02/07/24 17:46) Home Medications: Amitriptyline HCl 150 mg PO BID 01/14/19 [History] Gabapentin 1,600 mg PO BID 01/14/19 [History] Midodrine HCl 2.5 mg PO BID 12/07/23 [History] Hx Tetanus, Diphtheria Vaccination/Date Given: No Hx Influenza Vaccination/Date Given: Yes Hx Pneumococcal Vaccination/Date Given: No Travel Risk - International Travel Have you traveled outside of the country in past 3 weeks: No - Emerging Infectious Disease Are you exhibiting symptoms associated with any current EIDs: No - Review of Systems Constitutional: Other (Patient in cardiac arrest) Eyes: Other (Patient in cardiac arrest) Ears, Nose, & Throat: Other (Tracheal intubated) Respiratory: Other (Patient in cardiac arrest orotracheally intubated) Cardiac: Other (No palpable pulse. Patient in ventricular fibrillation on the monitor) Abdominal/Gastrointestinal: No Symptoms Genitourinary Symptoms: No Symptoms Musculoskeletal: No Symptoms Skin: Other (Diffuse body mottling) Neurological: Other (Patient unresponsive orotracheally intubated) Psychological: No Symptoms Endocrine: No Symptoms Hematologic/Lymphatic: No Symptoms Immunological/Allergic: No Symptoms All Other Systems: Reviewed and Negative - Past Medical History Pertinent Past Medical History: Yes Neurological History: Peripheral Neuropathy ENT History: No Pertinent History Cardiac History: Other Respiratory History: No Pertinent History Endocrine Medical History: No Pertinent History Musculoskeletal History: No Pertinent History GI Medical History: No Pertinent History History: No Pertinent History Psycho-Social History: No Pertinent History Male Reproductive Disorders: No Pertinent History Other Medical History: hypotension - Past Surgical History Past Surgical History: Yes Neuro Surgical History: No Pertinent History Cardiac: No Pertinent History Respiratory: No Pertinent History Gastrointestinal: Cholecystectomy, Hernia Repair Genitourinary: No Pertinent History Musculoskeletal: Orthopedic Surgery Male Surgical History: No Pertinent History Other Surgical History: back surgery. Left ankle surgery - Social History Smoking Status: Never smoker Exposure to second hand smoke: No Drug Use: none Patient Lives Alone: No - Physical Exam General Appearance: other (Patient in cardiac arrest and orotracheally intubated) Eye Exam: other (Bilateral pupils are fixed and dilated) Ears, Nose, Throat Exam: other (Patient is orotracheally intubated) Neck Exam: other (Mottling present around the patient's neck) Respiratory Exam: other (Patient is orotracheally intubated and there are equal breath sounds bilaterally.) Cardiovascular Exam: other (Patient in ventricular fibrillation on the monitor. There is no palpable pulse present) Rectal Exam: not done Extremity Exam: normal inspection, pelvis stable Neurologic Exam: other (Patient unresponsive and orotracheally intubated) Skin Exam: mottled (Diffuse) Lymphatic Exam: No adenopathy SpO2 Interpretation: hypoxic, O2 applied (And orotracheally intubated) O2 Delivery: Ambu-Bag (Patient orotracheally intubated) - Course Nursing assessment & vital signs reviewed: Yes Ordered Tests: Active Orders 24 hr Category Date Time Status Standby STAT RT 02/07/24 17:55 Completed Medication Summary Discontinued Medications Generic Name Dose Route Start Last Admin Trade Name Chidiq PRN Reason Stop Dose Admin Amiodarone HCl 300 mg 02/07/24 17:44 Amiodarone Hcl 150 Mg/3 Ml Vial .ROUTE 02/07/24 17:45 .STK-MED ONE Dextrose 50 ml 02/07/24 17:44 Dextrose 5%-Water 50 Ml IV 02/07/24 17:45 .STK-MED ONE Epinephrine HCl 2 mg 02/07/24 17:44 Epinephrine 1 Mg/10 Ml [facility] 0.1 Mg/Ml Syr .ROUTE 02/07/24 17:45 .STK-MED ONE Magnesium Sulfate Confirm 04/15/24 17:32 Magnesium Sulfate Injection Administered 02/07/24 17:33 Dose 2 gm .ROUTE .STK-[employer] ONE Sodium Bicarbonate 50 meq 02/07/24 17:44 Sodium Bicarbonate 1 Meq/Ml 50ml Syringe IV 02/07/24 17:45 .STK-MED ONE - Progress Progress Note: 02/07/24 18:07 My medical decision making and the assignment of critical care and severe medical complexity is based on review of the patient's past medical history, discussion with the paramedics, review of the patient's medication list, history of present illness and physical findings on examination. This patient arrives to us with no spontaneous breath sounds but is orotracheally intubated. His pupils are fixed and dilated. He is in ventricular fibrillation. The Brady device was applied. We performed several rounds of medications including epinephrine, amiodarone bolus, sodium bicarb and magnesium. I had a discussion with the patient's son and patient's mother. By this time the patient had been in cardiac arrest for approximately 25 to 30 minutes without a positive change in his condition despite CPR and medication. We did defibrillate the patient on 2 different occasions. When checking for pulse the last 5 minutes, the patient was in PEA followed by immediate asystole. The patient's spouse and the patient's son told me to stop CPR and coding this patient. The patient's rhythm immediately went to asystole. Patient had no spontaneous breath sounds. He had no spontaneous heart tones and no palpable pulse. The patient's pupils were fixed and dilated. The code was called at 1738 Counseled pt/family regarding: diagnosis Medical Desision Making - Independent Historian Additional History obtained from: Spouse, Family - Diagnostic Testing Diagnostic test were ordered, analyzed, and reviewed by me: No - Departure Departure Disposition: Clinical Impression: Cardiac arrest Condition: Critical Care Time: Yes Critical Care Time(excluding separately billable procedures): Critical 30-74 mins (30 minutes) Referrals: ALEXANDER JAVED MD [Primary Care Provider] - Follow up/PCP as directed
== END 2024-02-07 21:19 | disposition expired ==
LOC: ED 17:19
DX: I46.9 Cardiac arrest, cause unspecified (principal)
CPT/HCPCS: 94799; 96374; 96375; 99283; 99291; J0171; J0282; J3475